=== PATIENT | male | born 1940 | race Caucasian/White ===

== ENCOUNTER 2016-06-18 04:04 | Emergency (ER) | payer OTHER ==
[~2016-06-18] VITALS: Ht 177.8 cm; Wt 72.6 kg
--- NOTE | 2016-06-18 05:46 | ED GI/GU/ABDOMINAL COMPLAINT ---
See Addendum History of Present Illness General Chief Complaint: General Adult Stated Complaint: BIBA FOR CONSTIPATION Source: patient, old records Exam Limitations: no limitations Vital Signs & Intake/Output Vital Signs & Intake/Output Vital Signs Date Time Temp Pulse Resp B/P Pulse O2 O2 Flow FiO2 Ox Delivery Rate 06/18 0422 97.5 97 18 145/69 96 Room Air Allergies Coded Allergies: NO KNOWN ALLERGIES (07/21/13) NKA PER ANTIBIOTIC ORDER SHEET OF 07/21/13 - [facility] Triage Note: PT BIBA FROM HOME C/O BACK PAIN RELATED TO CONSTIPATION. LAST BM WAS 5 DAYS AGO.STATES ISPASSING GAS, DENIES NAUSEA. STATES ATE A BIG MEAL AND THEN THE PAIN GOTR WORSE Triage Nurses Notes Reviewed? yes Onset: Last week Duration: day(s):, constant, continues in ED, getting worse Timing: recent history Quality/Severity: fullness, moderate Location: generalized abdomen Radiation: no radiation Activities at Onset: none Prior Abdominal Problems: none Past Sexual History: Unobtainable at this time Modifying Factors: Worsens With: eating. Associated Symptoms: abdominal pain, loss of appetite HPI: 1 week prior to admission patient complains of low back pain described as achy and worse with movement turning bending improved with ibuprofen. 5 days prior to admission he last moved his bowels. Presents with abdominal distention fullness requesting help for constipation. He denies fever chills nausea vomiting diarrhea chest pain cough shortness of breath headache dysuria rash bleeding change in motor sensory function. Past History Travel History Traveled to [place] past 21 day No Medical History Any Pertinent Medical History? see below for history EENT: [place] Renal: nephrolithiasis Endocrine: diabetes Surgical History Surgical History: non-contributory Psychosocial History What is your primary language Sierra Leonean Tobacco Use: Current Daily Use Daily Tobacco Use Amount/Type: => 5 Cigarettes daily ETOH Use: heavy use Illicit Drug Use: denies illicit drug use Family History Hx Contributory? No Review of Systems Review of Systems Constitutional: Reports: no symptoms. EENTM: Reports: no symptoms. Respiratory: Reports: no symptoms. Cardiovascular: Reports: no symptoms. GI: Reports: see HPI, abdominal pain, constipation. Genitourinary: Reports: no symptoms. Musculoskeletal: Reports: see HPI, back pain. Skin: Reports: no symptoms. Neurological/Psychological: Reports: no symptoms. Hematologic/Endocrine: Reports: no symptoms. Immunologic/Allergic: Reports: no symptoms. All Other Systems: Reviewed and Negative Physical Exam Physical Exam General Appearance: well developed/nourished, alert, awake, anxious, mild distress Head: atraumatic, normal appearance Eyes: Bilateral: normal appearance, PERRL, EOMI, normal inspection. Ears, Nose, Throat, Mouth: hearing grossly normal, moist mucous membrane Neck: normal inspection, supple, full range of motion, normal alignment Respiratory: normal breath sounds, chest non-tender, no respiratory distress, quiet respiration, lungs clear Cardiovascular: regular rate/rhythm, normal peripheral pulses, norml femoral pulses equa Peripheral Pulses: 4+ carotid (R), 4+ carotid (L) Gastrointestinal: normal bowel sounds, soft, non-tender, no organomegaly Rectal: normal rectal tone, unable to appreciate stool Male Genitals: normal genitalia Back: normal inspection, normal range of motion Extremities: normal range of motion, no ligament instability Neurologic/Psych: no motor/sensory deficits, awake, alert, oriented x 3, normal gait, normal mood/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 No Severe Sepsis Present: No Septic Shock Present: No Progress Differential Diagnosis: bowel obstruction, gastritis Plan of Care: Orders Procedure Date/time Status Enema 06/18 0504 Active Initial ED EKG: none Hand-Off Endorsed To: VIKTORIYA AGUILAR MD Endorsed Time: 0700 Pending: other (soap suds enema) Departure Departure Disposition: STILL A PATIENT Condition: Stable Clinical Impression Primary Impression: Constipation Referrals: MEHDI DUNNE MD (PCP/Family) Departure Forms: Customer Survey General Discharge Information
[2016-06-18] MEDS ORDERED: SERTRALINE HCL100 MG PO (07:31)
[2016-06-18 07:39] VITALS: BP 179/78
== END 2016-06-18 07:57 ==
LOC: ERH 04:04
DX: K59.00 Constipation, unspecified (principal)

== ENCOUNTER 2016-06-23 15:28 | Emergency (ER) | payer OTHER ==
[~2016-06-23 15:28] MED LIST: SERTRALINE HCL100 MG PO
--- NOTE | 2016-06-23 15:43 | ED NECK/BACK PAIN COMPLAINT ---
History of Present Illness General Chief Complaint: Low Back Pain/Injury Stated Complaint: BIBA, BACK PAIN, S/P FALL X 1WEEK AGO Source: patient Exam Limitations: no limitations Vital Signs & Intake/Output Vital Signs & Intake/Output Vital Signs Date Time Temp Pulse Resp B/P Pulse O2 O2 Flow FiO2 Ox Delivery Rate 06/23 1828 98.4 84 18 130/70 99 Room Air 06/23 1533 96.8 90 20 134/65 96 Room Air Allergies Coded Allergies: NO KNOWN ALLERGIES (07/21/13) NKA PER ANTIBIOTIC ORDER SHEET OF 07/21/13 - [facility] Reconcile Medications Insulin Aspart, Recombinant (Novolog Flexpen) 100 UNIT/ML INSULN.PEN DM ( Reported) Insulin Detemir (Levemir Flextouch) 100 UNIT/ML (3 ML) INSULN.PEN 22-24 UNITS SC BID PRN DM (Reported) Sertraline HCl 100 MG TABLET 1 TAB PO DAILY MENTAL HEALTH (Reported) Triage Note: BIBA FOM HOME, C/O PAIN IN LOW BACK X 1 WEEK. S/P FALL LAST WEEK. Triage Nurses Notes Reviewed? yes Onset: Gradual Duration: week(s): (1) Timing: recent history Quality/Severity: moderate Location: lumbar spine, paraspinous muscles Radiation: none Context: TRIPPED Method of Injury: fall Loss of Consciousness: no loss of consciousness Modifying Factors: immobilization HPI: Patient is a 75-year-old male with history of diabetes presenting to the emergency department chief complaining of low back pain has been going on for the past one week. Patient reports that he chipped overnight a month clothing on the floor about a week ago and landed directly on his bottom. Has had low back pain since. Pain is worse with walking and certain positions. Pain does not radiate. Pain currently moderate. He's been taking intermittent ibuprofen at home with some relief. Denies any urinary incontinence or retention. No saddle paresthesias. Denies any abdominal pain. Denies head injury. No loss of consciousness. Does not use any assistive devices. He lives alone. (YVES BAINS,JUSTICE) Past History Travel History Traveled to [place] past 21 day No Medical History Any Pertinent Medical History? see below for history EENT: [place] Renal: nephrolithiasis Endocrine: diabetes Surgical History Surgical History: non-contributory Psychosocial History What is your primary language Maori Family History Hx Contributory? No (JUSTICE VILLALOBOS) Review of Systems Review of Systems Constitutional: Reports: no symptoms. Comments Review of systems: See HPI, All other systems negative. Constitutional, no chills fever or weight loss HEENT: No visual changes no sore throat no congestion Cardiovascular: No chest pain ,palpitation , orthopnea or ankle swelling Skin, no jaundice no rashes Respiratory: No dyspnea cough sputum or hemoptysis GI: No nausea no vomiting : No dysuria No hematuria Muscle skeletal: no neck pain, Neurologic: No numbness no confusion NO SOLO Psych: No stress anxiety or depression,. Heme/endocrine: No bruising no bleeding no polyuria or polydipsia Immunology: No splenectomy or history of AIDS (JUSTICE VILLALOBOS) Physical Exam Physical Exam General Appearance: well developed/nourished, no apparent distress, alert, awake , comfortable Neck: normal inspection, supple, full range of motion, normal alignment Comments: Well-developed well-nourished person in no acute distress HEENT: Normal EENT exam, extraocular motion intact, no nystagmus. Pupils equally round and reactive to light and accommodation. Nose is atraumatic. External auditory canal and Tympanic membranes clear. Pharynx normal. No swelling or edema. Neck: Supple, no lymphadenopathy, normal range of motion without pain or tenderness, no C-spine tenderness. Back: Tenderness to palpation in the lumbar paraspinal region as well as L4, L5. No ecchymosis noted. Pain with forward flexion. Negative modified straight leg raise bilaterally. Cardiovascular: Regular rate and rhythms no murmurs rubs or gallops, normal JVP Respiratory: Chest nontender. No respiratory distress.breath sounds clear to auscultation bilaterally Abdomen: Soft, nontender nondistended, no appreciable organomegaly. Normal bowel sounds. No ascites Extremity: No edema, no calf tenderness to palpation, normal and equal pulses. Muscular strength is 5 out of 5 in all extremities with core inserter strength is equal and symmetric bilaterally. Neuro: Alert oriented x3, motor sensory normal, cranial nerves II through XII grossly intact. Reflexes are 2+ bilaterally. Skin: No appreciable rash on exposed skin, skin is warm and dry. Psych: Mood and affect is normal, memory and judgment is normal. (JUSTICE VILLALOBOS) Progress Differential Diagnosis: cauda equina syn, herniated disc, myofascial strain, pyelo/UTI, sciatica Plan of Care: Orders Procedure Date/time Status Consistent Carbohydrate 1 06/23 D Active URINE LYTES, SPOT 06/23 1619 Complete SERUM OSMOLALITY 06/23 161 Complete COMPREHENSIVE METABOLIC PANEL 06/23 1619 Complete CBC WITHOUT DIFFERENTIAL 06/23 1619 Complete ACETONE 06/23 1619 Complete FingerStick- Glucose 06/23 1540 Active URINALYSIS 06/23 1540 Complete Laboratory Tests 06/23/16 1726: Urine Color YEL, Urine Clarity CLEAR, Urine pH 6.0, Ur Specific [place] 1.025, Urine Protein NEG, Urine Ketones 40 H, Urine Nitrite NEG, Urine Bilirubin NEG, Urine Urobilinogen 0.2, Ur Leukocyte Esterase NEG, Ur Microscopic EXAM NOT REQUIRED, Urine Hemoglobin NEG, Urine Glucose >=1000 H 06/23/16 1726: Ur Random Creatinine 130.4, Ur Random Sodium 60, Ur Random Potassium 41.3, Fraction Sodium Excret 0.2 06/23/16 1637: Anion Gap 14, Estimated GFR > 60, BUN/Creatinine Ratio 28.6 H, Glucose 270 H, Serum Osmolality 312 H, Calcium 9.8, Total Bilirubin 0.5, AST 15 L, ALT 27, Alkaline Phosphatase 198 H, Total Protein 6.5, Albumin 3.8, Globulin 2.7, Albumin/Globulin Ratio 1.4, CBC w Diff NO MAN DIFF REQ, RBC 4.50 L, MCV 100.1 H, MCH 34.2 H, RDW 12.9, MPV 7.8, Gran % 60.2, Lymphocytes % 26.4, Monocytes % 11.3 H, Eosinophils % 1.4, Basophils % 0.7, Absolute Granulocytes 3.9, Absolute Lymphocytes 1.7, Absolute Monocytes 0.7 H, Absolute Eosinophils 0.1, Absolute Basophils 0, PUBS MCHC 34.1, Acetone Level NEGATIVE Diagnostic Imaging: Viewed by Me: CT Scan. Discussed w/RAD: CT Scan. Radiology Impression: ORDERING PHYSICIAN: JUSTICE BAINS SERVICE DATE: 06/23/16-154 EXAM TYPE: CAT - CT LUMB SPINE WO IV CONTRAST EXAMINATION: CT LUMBAR SPINE WITHOUT CONTRAST CLINICAL INFORMATION: Pain status post fall. COMPARISON: CT scan of the abdomen and pelvis 07/09/2013. The prior study demonstrated multilevel degenerative changes. TECHNIQUE: Helical non-contrast CT images were obtained through the lumbar spine and 1.25 and 2.5 mm axial reconstructions were reviewed along with sagittal and coronal MPRs. DLP: 383.56 mGy-cm FINDINGS: There is a mild dextroscoliosis. There is narrowing of intervertebral disc height at L5-S1. There is invagination of disc into the superior endplate of L3 to the left of midline. There are multilevel marginal osteophytes which are most prominent anteriorly and to the left at L1-L2, L2-L3 and L5-S1. Vertebral body heights are maintained and there are no compression fractures. Overall, bone mineralization is diffusely decreased. There are moderate atheromatous calcifications. There are sclerotic changes at the right greater than left inferior sacroiliac joints. The appendix is normal. The visualized pelvic structures are unremarkable. SPINAL LEVELS: T12-L1: The disc configuration is normal. The central canal and neural foramina are widely patent. The facet joints are normal. L1-L2: There is mild bilateral facet arthropathy. Disc contour is normal. There is no central stenosis or foraminal narrowing. L2-L3: There is mild to moderate facet arthropathy and ligamenta flava hypertrophy. There is a diffuse disc bulge. There is no central stenosis and the neural foramina are patent. L3-L4: There is mild bilateral facet arthropathy. There is a diffuse disc bulge. There is mild left foraminal narrowing. There is no central stenosis. L4-L5: There is moderate bilateral facet arthropathy and ligamenta flava hypertrophy. There is a posterior disc protrusion extending into the inferior neural foramina bilaterally. There is no central stenosis. L5-S1: There is mild bilateral facet arthropathy. There is a posterior disc osteophyte complex extending into the right greater than left neural foramina. There appear to be sequelae of a posterior decompression. There is no central stenosis. IMPRESSION: 1. There are no acute fractures or subluxations. 2. There is no central stenosis. 3. There is multilevel facet arthropathy and spondylosis. DICTATED BY: MAYUR IQBAL MD Comments: Patient informed of all laboratory results and imaging study results. Patient ambulatory in the department without difficulty. Patient requesting food. Tylenol for pain. Likely back contusion. Patient will follow up with PCP. Patient nontoxic. Corinna Yates MD agrees with plan patient will follow up PCP. (YVES BAINS,JUSTICE) Departure Departure Time of Disposition: 1811 Disposition: HOME OR SELF CARE Condition: Stable Clinical Impression Primary Impression: Back pain Qualifiers: Back pain location: low back pain Chronicity: unspecified Back pain laterality: bilateral Sciatica presence: without sciatica Qualified Code: M54.5 - Low back pain Secondary Impressions: Hyperglycemia Referrals: MEHDI DUNNE MD (PCP/Family) Additional Instructions: Follow-up with your primary care physician call to make an appointment. Increase fluids. Make sure you checking blood glucose levels. Take Tylenol [id number] for any aches or pains. Apply warm compresses. PATIENT: MICAH CESPEDES PRESENT AGE: 75 PATIENT ACCOUNT NO: [id number] : 39 LOCATION: [facility] ORDERING PHYSICIAN: JUSTICE BAINS SERVICE DATE: 06/23/161543 EXAM TYPE: CAT - CT LUMB SPINE WO IV CONTRAST EXAMINATION: CT LUMBAR SPINE WITHOUT CONTRAST CLINICAL INFORMATION: Pain status post fall. COMPARISON: CT scan of the abdomen and pelvis 07/09/2013. The prior study demonstrated multilevel degenerative changes. TECHNIQUE: Helical non-contrast CT images were obtained through the lumbar spine and 1.25 and 2.5 mm axial reconstructions were reviewed along with sagittal and coronal MPRs. DLP: 383.56 mGy-cm FINDINGS: There is a mild dextroscoliosis. There is narrowing of intervertebral disc height at L5-S1. There is invagination of disc into the superior endplate of L3 to the left of midline. There are multilevel marginal osteophytes which are most prominent anteriorly and to the left at L1-L2, L2-L3 and L5-S1. Vertebral body heights are maintained and there are no compression fractures. Overall, bone mineralization is diffusely decreased. There are moderate atheromatous calcifications. There are sclerotic changes at the right greater than left inferior sacroiliac joints. The appendix is normal. The visualized pelvic structures are unremarkable. SPINAL LEVELS: T12-L1: The disc configuration is normal. The central canal and neural foramina are widely patent. The facet joints are normal. L1-L2: There is mild bilateral facet arthropathy. Disc contour is normal. There is no central stenosis or foraminal narrowing. L2-L3: There is mild to moderate facet arthropathy and ligamenta flava hypertrophy. There is a diffuse disc bulge. There is no central stenosis and the neural foramina are patent. L3-L4: There is mild bilateral facet arthropathy. There is a diffuse disc bulge. There is mild left foraminal narrowing. There is no central stenosis. L4-L5: There is moderate bilateral facet arthropathy and ligamenta flava hypertrophy. There is a posterior disc protrusion extending into the inferior neural foramina bilaterally. There is no central stenosis. L5-S1: There is mild bilateral facet arthropathy. There is a posterior disc osteophyte complex extending into the right greater than left neural foramina. There appear to be sequelae of a posterior decompression. There is no central stenosis. IMPRESSION: 1. There are no acute fractures or subluxations. 2. There is no central stenosis. 3. There is multilevel facet arthropathy and spondylosis. DICTATED BY: MAYUR IQBAL MD DATE/TIME DICTATED:06/23/161707 MEDICAL APPOINTMENT SCHEDULER:DANIELLE DATE/TIME TRANSCRIBED:06/23/161707 CONFIDENTIAL, DO NOT COPY WITHOUT APPROPRIATE AUTHORIZATION. <Electronically signed in Other Vendor System> SIGNED BY: MAYUR IQBAL MD 06/23/161727 Departure Forms: Customer Survey General Discharge Information (JUSTICE VILLALOBOS) PA/SPECIAL EDUCATOR Co-Sign Statement Statement: ED Attending supervision documentation- [X] I saw and evaluated the patient. I have also reviewed all the pertinent lab results and diagnostic results. I agree with the findings and the plan of care as documented in the PA's/SPECIAL EDUCATOR's documentation. [X] I have reviewed the ED Record and agree with the PA's/SPECIAL EDUCATOR's documentation. [] Additions or exceptions (if any) to the PAs/SPECIAL EDUCATOR's note and plan are summarized below: [] (LAUREN JORDAN,CORINNA)
[2016-06-23] MEDS ORDERED: NOVOLOG FL100 UNIT/1 SC (16:10)
[2016-06-23] MEDS ORDERED: LEVEMIR FL100 UNIT/1 SC (16:11)
[2016-06-23 16:49] LABS: ABSOLUTE BASOPHIL COUNT 0 /CUMM (0.0-0.2); ABSOLUTE EOSINOPHIL COUNT 0.1 /CUMM (0.0-0.7); ABSOLUTE GRANULOCYTE CT 3.9 /CUMM (1.4-6.5); ABSOLUTE LYMPH COUNT 1.7 /CUMM (1.2-3.4); ABSOLUTE MONOCYTE COUNT 0.7 /CUMM (0.10-0.60); BASOPHIL % 0.7 % (0.0-2.0); EOSINOPHIL % 1.4 % (0-5); GRANULOCYTE % 60.2 % (42.2-75.2); MEAN CORPUSCULAR HGB 34.2 PG (27.0-31.0); MEAN CORPUSCULAR HGB CONC 34.1 G/DL (33.0-37.0); MEAN CORPUSCULAR VOLUME 100.1 FL (80.0-94.0); MEAN PLATELET VOLUME 7.8 FL (7.4-10.4); PLATELET COUNT 279 /CUMM (130-400); RBC DISTRIBUTION WIDTH 12.9 % (11.5-14.5); WHITE BLOOD CELL COUNT 6.4 /CUMM (4.8-10.8)
--- NOTE | 2016-06-23 17:28 | CT SCAN REPORT ---
EXAMINATION: CT LUMBAR SPINE WITHOUT CONTRAST CLINICAL INFORMATION: Pain status post fall. COMPARISON: CT scan of the abdomen and pelvis 07/09/2013. The prior study demonstrated multilevel degenerative changes. TECHNIQUE: Helical non-contrast CT images were obtained through the lumbar spine and 1.25 and 2.5 mm axial reconstructions were reviewed along with sagittal and coronal MPRs. DLP: 383.56 mGy-cm FINDINGS: There is a mild dextroscoliosis. There is narrowing of intervertebral disc height at L5-S1. There is invagination of disc into the superior endplate of L3 to the left of midline. There are multilevel marginal osteophytes which are most prominent anteriorly and to the left at L1-L2, L2-L3 and L5-S1. Vertebral body heights are maintained and there are no compression fractures. Overall, bone mineralization is diffusely decreased. There are moderate atheromatous calcifications. There are sclerotic changes at the right greater than left inferior sacroiliac joints. The appendix is normal. The visualized pelvic structures are unremarkable. SPINAL LEVELS: T12-L1: The disc configuration is normal. The central canal and neural foramina are widely patent. The facet joints are normal. L1-L2: There is mild bilateral facet arthropathy. Disc contour is normal. There is no central stenosis or foraminal narrowing. L2-L3: There is mild to moderate facet arthropathy and ligamenta flava hypertrophy. There is a diffuse disc bulge. There is no central stenosis and the neural foramina are patent. L3-L4: There is mild bilateral facet arthropathy. There is a diffuse disc bulge. There is mild left foraminal narrowing. There is no central stenosis. L4-L5: There is moderate bilateral facet arthropathy and ligamenta flava hypertrophy. There is a posterior disc protrusion extending into the inferior neural foramina bilaterally. There is no central stenosis. L5-S1: There is mild bilateral facet arthropathy. There is a posterior disc osteophyte complex extending into the right greater than left neural foramina. There appear to be sequelae of a posterior decompression. There is no central stenosis. IMPRESSION: 1. There are no acute fractures or subluxations. 2. There is no central stenosis. 3. There is multilevel facet arthropathy and spondylosis.
[2016-06-23 18:28] VITALS: BP 130/70
== END 2016-06-23 19:04 ==
LOC: ERH 15:28
PROVIDERS: Physician Assistant
DX: M54.5 Low back pain (principal); E11.65 Type 2 diabetes mellitus with hyperglycemia
CPT/HCPCS: 84133; 84300; 81003; 82570

== ENCOUNTER 2018-01-27 15:15 | Inpatient (IN) | payer OTHER ==
[~2018-01-27] VITALS: Ht 180.3 cm; Wt 73.6 kg
[~2018-01-27 15:15] MED LIST changes: +LEVEMIR FL100 UNIT/1 SC; +NOVOLOG FL100 UNIT/1 SC
--- NOTE | 2018-01-27 15:22 | ED NEURO DEFICIT/STROKE ---
History of Present Illness General Chief Complaint: Neuro Symptoms/ Deficit Stated Complaint: BIBA STROKE ALERT Source: patient, family Exam Limitations: poor historian Vital Signs & Intake/Output Vital Signs & Intake/Output Vital Signs Date Time Temp Pulse Resp B/P B/P Pulse O2 O2 Flow FiO2 Mean Ox Delivery Rate 01/27 1856 110 16 196/88 94 Room Air 01/27 1656 98.1 105 16 168/81 95 Room Air 01/27 1538 97.7 111 20 173/86 94 Room Air 01/27 1530 96 Room Air Allergies Coded Allergies: No Known Allergies (01/27/18) Reconcile Medications Insulin Aspart, Recombinant (Novolog Flexpen) 100 UNIT/ML INSULN.PEN DM ( Reported) Insulin Detemir (Levemir Flextouch) 100 UNIT/ML (3 ML) INSULN.PEN 22-24 UNITS SC BID PRN DM (Reported) Sertraline HCl 100 MG TABLET 1 TAB PO DAILY MENTAL HEALTH (Reported) Triage Nurses Notes Reviewed? yes HPI: Patient presents for evaluation of slurred speech. Patient states that he wasn' t sure why he was being sent to the emergency department. He does admit that his daughter spoke to him on the phone and felt that he was slurring his speech and she then contacted the paramedics. The patient does state that his speech seems to be a little "muddled". He states he fell down earlier today because he slipped on some fluid on the floor. He denies loss of consciousness and states that he didn't even fall to the floor. The patient states that he has poor recall of events. He wasn't sure when he awoke this morning. According to the patient's son, he saw his father (the patient) at about 11:30 this morning and noted that his speech seemed a little slurred. His father seem to be otherwise doing alright and commented that he needed some groceries or other necessities. His son went to the store and upon his return found his father on the floor. It was at that point that the family contacted 911 and had the patient brought to the emergency department for evaluation. Past History Medical History Any Pertinent Medical History? see below for history EENT: CHITINA Renal: nephrolithiasis Endocrine: diabetes Surgical History Surgical History: non-contributory Psychosocial History What is your primary language Kinyarwanda Family History Hx Contributory? No Review of Systems Review of Systems Constitutional: Reports: no symptoms. EENTM: Reports: no symptoms. Respiratory: Reports: no symptoms. Cardiovascular: Reports: no symptoms. GI: Reports: no symptoms. Genitourinary: Reports: no symptoms. Musculoskeletal: Reports: no symptoms. Skin: Reports: no symptoms. Neurological/Psychological: Reports: no symptoms. Hematologic/Endocrine: Reports: see HPI. Immunologic/Allergic: Reports: no symptoms. All Other Systems: Reviewed and Negative Physical Exam Physical Exam General Appearance: SEE BELOW Cranial Nerves: SEE BELOW Comments: Gen.: Well-nourished, well-developed, no acute respiratory distress. Head: Normocephalic, atraumatic. Eyes: Normal inspection bilaterally, EOMI, right pupil 2 mm, left pupil 3-4 mm and deformed likely secondary to prior surgery Ears: Normal inspection bilaterally Nose: Normal inspection Throat/mouth : Moist mucosa Neck: Supple, full range of motion, no goiter, no carotid bruits, equal carotid pulses Heart: Regular rate and rhythm, no murmurs rubs or gallops Lungs: Clear to auscultation bilaterally with normal air entry Chest: Nontender Back: Normal range of motion Abdomen: Nondistended, normal bowel sounds Extremities: Normal range of motion grossly, equal radial pulses, no cyanosis clubbing or edema, equal hand grasp, no pronator drift, no dysmetria Neurologic: Cranial nerves 2 through 12 intact, speech is mildly slurred, without apparent aphasia Skin: warm and dry Psychiatric: Calm, cooperative, no apparent delusions or hallucinations Core Measures CVA/TIA Diagnosis: No Sepsis Present: No Sepsis Focused Exam Completed? No Progress Differential Diagnosis: cva, DEHYDRATION, ELECTROLYTE ABNORMALITY, OCCULT INFECTION, ALCOHOL OR OTHER DRUG INTOXICATION/MEDICATION SIDE EFFECT Plan of Care: Orders Procedure Date/time Status Nothing by Mouth 01/28 B Active Misc Message 01/27 1923 Active ED Holding Orders 01/27 1923 Active Admit to inpatient 01/27 1923 Active Vital Signs 01/27 1923 Active Code Status 01/27 1923 Active Straight Cath 01/27 1844 Complete Add-on Test (ER Only) 01/27 1650 Active Add-on Test (ER Only) 01/27 1605 Active URINALYSIS 01/27 1557 Complete TSH REFLEX 01/27 1553 Complete ETHANOL 01/27 1553 Complete CREATINE PHOSPHOKINASE 01/27 1553 Complete Telemetry/Inspector Fuel Hose 01/27 152 Active PARTIAL THROMBOPLASTIN TIME 01/27 152 Complete PROTHROMBIN TIME 01/27 152 Complete COMPREHENSIVE METABOLIC PANEL 01/27 152 Complete CBC WITHOUT DIFFERENTIAL 01/27 152 Complete EKG 01/27 152 Active Current Medications Sig/Kamari Start time Last Medication Dose Stop Time Status Admin Sodium Chloride 1,000 ML ONCE ONE 01/27 1615 AC 01/27 (Normal Saline 0.9%) 01/27 1194 1616 Laboratory Tests 01/27/18 1841: Urinalysis LIGHT H, Urine Color YEL, Urine Clarity CLEAR, Urine pH 6.0, Ur Specific [place] 1.020, Urine Protein NEG, Urine Ketones >=80, Urine Nitrite NEG , Urine Bilirubin NEG, Urine Urobilinogen 0.2, Ur Leukocyte Esterase NEG, Ur Microscopic SEDIMENT EXAMINED, Urine RBC 1-3, Urine WBC RARE, Ur Epithelial Cells RARE, Hyaline Casts RARE H, Urine Mucus FEW, Urine Hemoglobin SMALL H, Urine Glucose >=1000 H 01/27/18 1553: Anion Gap 17 H, Estimated GFR > 60, BUN/Creatinine Ratio 28.8 H, Glucose 388 H, Calcium 9.8, Total Bilirubin 1.0, AST 35, ALT 25, Alkaline Phosphatase 110, Creatine Kinase 813 H, Total Protein 7.0, Albumin 4.2, Globulin 2.8, Albumin/ Globulin Ratio 1.5, TSH &T3 &Free T4 Intrp 1.260, PT 12.7 H, INR 1.16, APTT 29, CBC w Diff NO MAN DIFF REQ, RBC 4.92, MCV 99.8 H, MCH 33.6 H, MCHC 33.7, RDW 13.3, MPV 8.8, Gran % 86.3 H, Lymphocytes % 5.9 L, Monocytes % 7.8, Eosinophils % 0, Basophils % 0, Absolute Granulocytes 12.8 H, Absolute Lymphocytes 0.9 L, Absolute Monocytes 1.2 H, Absolute Eosinophils 0, Absolute Basophils 0, Serum Alcohol < 10.0 Initial ED EKG: NSR, no ST T wave changes Comments: 01/27/2018 3:20:26 PM as patient was transported directly to CT scan, I evaluated patient on the CAT scan table. Other than mildly slurred/dysarthric speech I see no other focal neurologic deficits. TPA will not be administered given the unclear time of onset of this patient's slurred speech. 01/27/2018 3:52:34 PM per radiologist, no acute changes on head and c spine ct. 01/27/2018 5:11:30 PM patient attempted to sit ice water from a straw with subsequent substantial coughing episode. I feel this patient is at very high risk of aspiration in the past that he avoid PO intake. 01/27/2018 7:00:01 PM patient's case discussed with Dr. Luna and Dr. Betts. Departure Departure Disposition: STILL A PATIENT Condition: Stable Clinical Impression Primary Impression: Dysphagia Qualifiers: Dysphagia type: unspecified Qualified Code: R13.10 - Dysphagia, unspecified Secondary Impressions: Hyperglycemia Referrals: Jonny Cool MD (PCP/Family) Departure Forms: Customer Survey General Discharge Information Admission Note Spoke With: Aba Max MD Documentation of Exam: Documentation of any treatments & extenuating circumstances including Concerns Regarding Discharge (functional status, medication knowledge or non-compliance, living conditions, etc.) that warrant an admission rather than observation: Presents after transient facial droop with a question of persistent slurred speech. During his emergency department stay he had great difficulty swallowing liquid, resulting in a pronounced coughing episode. In addition he is mildly hyperglycemic with a history of insulin-dependent diabetes. He is also a heavy cigarette smoker. Given the patient's possible prehospital facial droop along with his difficulty swallowing and multiple risk factors for cerebrovascular disease, I feel this patient requires hospitalization for investigation of the cause of his dysphasia (TIA/stroke, esophageal disease) and treatment of his hyperglycemia. I do not feel this patient is a good candidate for outpatient management given his difficulty in swallowing liquids as I feel he would be at high risk of dehydration and would potentially have difficulty in swallowing pills/complying with treatment. He would likely return in worse clinical condition. In addition to the above I feel the patient should have a neurology consultation, investigation of reversible causes of TIA/stroke such as cardioembolic disease and carotid artery disease. His hyperglycemia should be managed with IV fluids and insulin. If patient's hyperglycemia does not resolve an endocrinology consultation should be considered. Physical therapy should be considered as well to assess for patient's ability to swallow and for gait stability (the patient has fallen recently). Patient's difficulty swallowing should be evaluated with a swallowing study and/or formal dysphagia evaluation. GI consult should be considered due to the possibility of a mechanical obstructive process. I feel this patient will require a multiple day hospitalization. Critical Care Note Critical Care Note Critical Care Time: 30-74 min
--- NOTE | 2018-01-27 15:54 | CT SCAN REPORT ---
EXAMINATION: CT HEAD WITHOUT CONTRAST CT CERVICAL SPINE WITHOUT CONTRAST CLINICAL INFORMATION: Fall. Slurred speech. COMPARISON: None. TECHNIQUE: Contiguous axial imaging was performed from the skullbase to vertex without intravenous administration of contrast. Multidetector helical imaging was performed through the cervical spine. DLP: 635.3, 312 mGy-cm. FINDINGS: HEAD: There is no evidence of acute intracranial hemorrhage or territorial infarction. No abnormal mass effect or midline shift is seen. Danielson to white matter differentiation is well preserved. No extra-axial fluid collections are identified. Generalized parenchymal volume loss noted. There is no evidence of hydrocephalus. Mild chronic white matter microangiopathic changes present. The osseous structures and soft tissues are normal. The mastoid air cells and visualized portions of the paranasal sinuses are well aerated. CERVICAL SPINE: No acute fracture or dislocation is identified in the cervical spine. Multilevel bridging endplate osteophytes are present, particularly from the C4-C7 levels with mild disc space narrowing. There is exuberant right-sided facet arthropathy at C3-C4. Ankylosis of the C2-C3 facet joint. Facet arthropathy and disc-osteophyte complexes contributing to varying degrees of foraminal narrowing, most severe on the right side at C3-C4. The atlantoaxial articulation is normally maintained. The paraspinal soft tissues are normal. Incidental ossification of the stylohyoid ligaments bilaterally. The lung apices are clear with mild emphysematous changes. IMPRESSION: 1. No acute intracranial hemorrhage or territorial infarction. Mild chronic white matter microangiopathy. The possibility of a focal acute ischemic process cannot be ruled out on the basis of this study. 2. No evidence of acute cervical spine traumatic injury. Multilevel cervical spondylosis.
[2018-01-27 16:00] LABS: ABSOLUTE BASOPHIL COUNT 0 /CUMM (0.0-0.2); ABSOLUTE EOSINOPHIL COUNT 0 /CUMM (0.0-0.7); ABSOLUTE GRANULOCYTE CT 12.8 /CUMM (1.4-6.5); ABSOLUTE LYMPH COUNT 0.9 /CUMM (1.2-3.4); ABSOLUTE MONOCYTE COUNT 1.2 /CUMM (0.10-0.60); BASOPHIL % 0 % (0.0-2.0); EOSINOPHIL % 0 % (0-5); HEMATOCRIT 49.1 % (42-52); MEAN CORPUSCULAR HGB 33.6 PG (27.0-31.0); MEAN CORPUSCULAR HGB CONC 33.7 G/DL (33.0-37.0); MEAN CORPUSCULAR VOLUME 99.8 FL (80.0-94.0); MEAN PLATELET VOLUME 8.8 FL (7.4-10.4); PLATELET COUNT 243 /CUMM (130-400); RBC DISTRIBUTION WIDTH 13.3 % (11.5-14.5); RED BLOOD CELL CT 4.92 /CUMM (4.70-6.10); WHITE BLOOD CELL COUNT 14.8 /CUMM (4.8-10.8)
[2018-01-27 16:08] LABS: PT 12.7 SEC (9.4-12.5); PTT 29 SEC (25-37)
[2018-01-27 16:15] LABS: GRANULOCYTE % 86.3 % (42.2-75.2)
--- NOTE | 2018-01-27 17:19 | RADIOLOGY REPORT ---
EXAMINATION: XR PORTABLE CHEST CLINICAL INFORMATION: Status post fall. Alcohol intoxication. Weakness. COMPARISON: None TECHNIQUE: Portable frontal view of the chest was obtained. FINDINGS: No focal consolidation, pleural effusion or pneumothorax. Heart size is normal. No acute osseous abnormality. IMPRESSION: No acute pulmonary process.
--- NOTE | 2018-01-27 20:18 | History & Physical ---
Tristan Rosado 01/27/18 2017: General Information and HPI MD Statement: I have seen and personally examined MICAH CESPEDES and documented this H&P. The patient is a 77 year old M who presented with a patient stated chief complaint of [slurred speech and falling down]. Source of Information: patient Exam Limitations: poor historian History of Present Illness: The patient is a 77-year-old man with a past medical history significant for diabetes mellitus on insulin, nephrolithiasis, who was brought in by ambulance due to status speech that was noticed by family members. The history which is provided by the patient is not consistent. He is states that he thought he had a stroke but he believes it is not the case. He says that his son thought he should come to the hospital and this is the reason that he is here. He believes that he severe back pain and for this reason he might be having a stroke. His back pain was worse and seems to 3 days ago and he mentions that he has tenderness it is hard for him to get off the floor. Last June he had one admission to ED because of low back pain. He does not take any pain medication he mentions that movement worsens it. He was diagnosed with diabetes 23 years ago, first oral hypoglycemic agents were started for him and then almost 10 years ago insulin was started for him. His PCP is Dr. Cool, last visit with his PCP was last week, he states that the reason for this visit was possible stroke, because he has severe low back pain and diabetes and not being able to get off the floor. Yesterday he fell on the floor, he believes that his foot gave out on the floor, and water was spilled over on the floor in the kitchen and he just felt a slightly. He fell 2 times consequently yesterday. He denies any dizziness or confusion before after a fall. He was able to get up by himself after a fall. He states that he fell on his back later he says that he fell straight down, but he has bruises on his forehead. He confirms that he is head during this fall. The second fall happened in the same spot as the first fall exactly the same situation. He also admits that he had falls last week when he lost his balance and fell. He mentioned that this is okay to call his son, Km, and he also provided his phone number. He denies any hyperlipidemia thyroid issues, dysuria, frequency, constipation, chills, sweating, chest pain, headache, lightheadedness, dizziness , or nausea, vomiting, or weight loss. During the interview he has a productive wet cough which she mentions that has started from 3 weeks ago, today he had some phlegm which is clear not thick and nonbloody. He uses hearing aids bilaterally, he denies any history of heart, liver, prostate, or lung disease. He lives alone and takes care of his household by himself. He denies any difficulty swallowing or eating. He also had bladder and bowel incontinence. Allergies: No allergies to any known medications or foods Past medical history: Diabetes mellitus, nephrolithiasis, hearing impairment bilaterally Past surgical history: Low back surgery due to disc injury many years ago, he does not recall the dates Family history: He mentions that his father had diabetes mellitus, he committed suicide because he was afraid that he would have a stroke and would be incapacitated. Social history: He has been smoking 4-5 cigarettes per day for the past 60 years, he is states that he likes smoking and drinking and he is not going to quit. He drinks 1 bottle of "cheap vodka" every week for the past 18 years when his and he is started dating. He denies any use of recreational drugs. 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 Allergies/Medications Allergies: Coded Allergies: No Known Allergies (01/27/18) Home Med list Insulin Aspart, Recombinant (Novolog Flexpen) 100 UNIT/ML INSULN.PEN DM ( Reported) Insulin Detemir (Levemir Flextouch) 100 UNIT/ML (3 ML) INSULN.PEN 22-24 UNITS SC BID PRN DM (Reported) Sertraline HCl 100 MG TABLET 1 TAB PO DAILY MENTAL HEALTH (Reported) Compliance With Home Meds: UNKNOWN Past History Travel History Traveled to [place] past 21 day No Medical History Neurological: NONE [place]: [place] Cardiovascular: NONE Respiratory: NONE Gastrointestinal: NONE Hepatic: NONE Renal: nephrolithiasis Musculoskeletal: NONE Psychiatric: NONE Endocrine: diabetes Surgical History Surgical History: non-contributory Review of Systems Review of Systems Constitutional: Reports: see HPI. Exam & Diagnostic Data Last 24 Hrs of Vital Signs/I&O Vital Signs Date Time Temp Pulse Resp B/P B/P Pulse O2 O2 Flow FiO2 Mean Ox Delivery Rate 01/28 0200 98 16 01/28 0000 98.5 118 20 160/88 01/28 0000 96 Room Air 01/27 2255 98.0 112 18 167/78 01/27 2229 98.0 112 18 167/78 01/27 2218 94 Room Air 01/27 2210 98.5 118 20 160/88 96 Room Air 01/27 2028 98.0 118 20 167/79 95 Room Air 01/27 1856 110 16 196/88 94 Room Air 01/27 1656 98.1 105 16 168/81 95 Room Air 01/27 1538 97.7 111 20 173/86 94 Room Air 01/27 1530 96 Room Air Intake & Output 01/28 0800 01/28 0000 01/27 1600 Intake Total 1050 Output Total 300 Balance 750 Intake, IV 1000 Intake, Oral 50 Number 1 Bowel Movements Output, Urine 300 Patient 160 lb 140 lb Weight Weight Bed scale Reported by Patient Measurement Method Physical Exam General Appearance Alert, Oriented X3, Cooperative, No Acute Distress Skin No Rashes, Several different stage briuses on his boddy, knees, back Skin Temp/Moisture Exam: Warm/Dry Sepsis Skin Exam (color): Normal for Ethnicity HEENT Atraumatic, EOMI, Dry Mucosa Neck Supple Cardiovascular Regular Rate, Normal S1, Normal S2 Lungs diffuse ronchi Abdomen Normal Bowel Sounds, Soft, No Tenderness, No Hepatospenomegaly Neurological Cranial Nerves 3-12 NL, Reflexes 2+, Not able to stand, so not able to check gait or balance, decreased sensation on sole of feet, decreased MP on right side 4/5, Extremities Bruises on both knees, different stages of healing, probably due to multiple falls, Weak LE Pulses, PVD, Varicose veins in LE, -ve SLR, Vascular Weak LE pulses Assessment/Plan Assessment: The patient is a 77-year-old male who is active smoker, with past medical history significant for diabetes mellitus on insulin, and nephrolithiasis who has presented to ED due to slurred speech which was noticed by his family members. Since he is diabetic and he uses insulin, first blood sugar should be checked to rule out hypoglycemia which was done for him and blood sugar was 388. Rule out TIA/CVA: The patient is male, 77-year-old, past medical history of diabetes mellitus, active smoker, peripheral vascular disease symptoms, high risk for cerebral accidents. He also had bladder and bowel incontinence which could be as a result of neurologic deficit. Plan: Head CT scan without contrast, repeat imaging later, neurology's consult Alcohol abuse: The patient has a history of 1 L of alcohol per week which is extensive. But the urine alcohol level was negative, he had tremor in his hands , the history was not consistent and there is possibility of confabulation in favor of Wernicke-Korsakoff syndrome. Plan: Place the patient on CIWA score and give Ativan based on protocol, thiamine, banana bag, neurochecks Rhabdomyolysis: The patient had a fall and it is unknown exactly how long he was on the floor, he has a positive CPK with hyperkalemia of 5.3 and small hemoglobin was seen in his UA. Creatinine is 0.8 but we should be careful about ATN in the next 24 hours due to rhabdomyolysis although CPK is not significantly high. Plan: Recheck potassium level, and creatinine level. Hypertension: The patient had a high blood pressure on presentation with the highest systolic blood pressure in 190s, Plan: Blood pressure of this patient will be monitored and managed as needed Diabetes mellitus: The patient has a long-standing history of diabetes mellitus and he is on insulin Plan: We will control blood sugar using sliding scale insulin As Ranked By This Provider Problem List: 1. CVA (cerebral vascular accident) 2. Hyperglycemia 3. Back pain 4. Falls frequently Core Measures/Misc (01/28) Acute Coronary Syndrome ACS Diagnosis: No Congestive Heart Failure Congestive Heart Failure Diagnosis No Cerebrovascular Accident CVA/TIA Diagnosis: Yes VTE (View Protocol) VTE Risk Factors Age>40 No Mechanical VTE Prophylaxis d/t N/A MechProphylax Ordered No VTE Pharm Prophylaxis d/t NA PharmProphylax ordered Sepsis (View protocol) Sepsis Present: No If YES complete Sepsis Event Note If YES complete Sepsis Event Note Estrella Liu MD 01/27/182024: Core Measures/Misc (01/28) Sepsis (View protocol) If YES complete Sepsis Event Note If YES complete Sepsis Event Note Resident Review Statement Resident Statement: examined this patient, discussed with recruiting internship, agreed with recruiting internship, discussed with family Other Findings: Patient is a 77-year-old male BIBA for slurring of speech weakness and possible stroke as per son/ED documents. Patient had a witnessed fall at home around 11: 00 and he refused to transfer to the hospital. Patient was found on the floor around 12:30 as per family. He was saying that I am just resting. Son reports that his speech is slurred. He was having incontinence of the urine but there was no facial droop. At the time of presentation in the ED he was oriented to time place and person without any weakness in upper extremity or lower extremity. At the time of presentation his NIH score is around 1.His blood sugar was 339. Most of the history is taken from the patient. He was oriented to time place and person. 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 He said that he has recurrent falls since last couple of weeks. At her baseline he has a history of diabetes, he is currently on insulin and following MD Raven Gregory. A week ago he started having pain in his back and he thought that he is having stroke so he went to Jonny Cool MD. He was told to follow-up with him next 1-2 weeks. According to him he fell yesterday morning around 11:00 because of the water on the floor. He got up by himself initially and again fell. Recently he started having difficulty in getting up after sitting especially in the bathroom and bed. He denies; headache, blurry vision, confusion, nausea, vomiting, fever, incontinence of the stool in the urine. Of note patient was found incontinent for stool in the urine in the ED. Past medical history- Type 2 diabetes; Diagnosed at the age of 54. History of multiple mechanical falls. Nephrolithiasis Vital signs at the time of admission-temperature 97.7, pulse 111, respiratory 20 , blood pressure 173/86, SPO2 94% on room air. On examination-mucous membrane was dry. He has bruises and ambulation in different stages of healing to bilateral upper and lower extremities including left upper back, flank and crownof the head. On physical examination-patient was conscious cooperative oriented to time place and person, pupils round and reactive, no cranial nerve deficit, neck is stiff, no JVD, heart S1-S2 normal, lungs bilateral wheezing, abdomen soft, muscle power -4/5 left upper and lower limb, 5/5 right upper limb and lower limb. Multiple bruises throughout the body including both elbows, both knees, left side of the chest. Blood workup-WBC 14.8, hemoglobin 16.5, hematocrit 49.1, MCV 99.8, platelet count 243, there is an 86.3, lymphocytes 5.9, serum sodium 135, potassium 5.3, chloride 95, anion gap 17, BUN 23, creatinine 0.8, glucose 388, creatinine kinase 8.3, AST 35, ALT 25, alkaline phosphatase 110, albumin 4.2, TSH 1.260, PT /INR 12.7/1.16, urine analysis ketones more than 80, pH 6.0, hyaline casts rare, hemoglobin small, urine glucose more than thousand, U tox serum alcohol less than 10. Problem list * Repeated fall leading to multiple bruises; rule out the cause possible peripheral neuropathy, brain stem lesion, parkinsonism * Proximal muscle weakness; myopathy should be ruled out or maybe diabetes induced myopathy * Asymptomatic tachycardia ? 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 until swallow evaluation (Patient had coughing and choking episode after he sipped ice water) * Get the records from Dr Cool, office. * Inj metoprolol 2.5 mg every 8 * Place Neurolgy consult * Follow MRI brain and MRA of the neck * CIWA score * Ativan according to CIWA protocol * Nicotin patch * Follow vitamin B12, folic acid, iron panel * PT/OT * TRC/nebulization * CODE STATUS-DNR/DNI * Diet-n.p.o. till passes swallow evaluation * DVT prophylaxis-ALPS/heparin
[2018-01-27 22:10] VITALS: BP 160/88
[2018-01-27 22:29] VITALS: BP 167/78
[2018-01-28] VITALS: BP 160/88
[2018-01-28 06:00] VITALS: BP 150/100
[2018-01-28 07:09] VITALS: BP 146/74
[2018-01-28 08:31] LABS: ABSOLUTE BASOPHIL COUNT 0 /CUMM (0.0-0.2); ABSOLUTE EOSINOPHIL COUNT 0 /CUMM (0.0-0.7); ABSOLUTE GRANULOCYTE CT 9.3 /CUMM (1.4-6.5); ABSOLUTE LYMPH COUNT 1.1 /CUMM (1.2-3.4); ABSOLUTE MONOCYTE COUNT 0.9 /CUMM (0.10-0.60); BASOPHIL % 0 % (0.0-2.0); EOSINOPHIL % 0 % (0-5); GRANULOCYTE % 82.3 % (42.2-75.2); HEMATOCRIT 45.2 % (42-52); MEAN CORPUSCULAR HGB CONC 34.1 G/DL (33.0-37.0); MEAN CORPUSCULAR VOLUME 99.7 FL (80.0-94.0); MEAN PLATELET VOLUME 9.1 FL (7.4-10.4); PLATELET COUNT 216 /CUMM (130-400); RBC DISTRIBUTION WIDTH 13.1 % (11.5-14.5); RED BLOOD CELL CT 4.53 /CUMM (4.70-6.10); WHITE BLOOD CELL COUNT 11.3 /CUMM (4.8-10.8)
--- NOTE | 2018-01-28 08:49 | PN- Housestaff ---
Leonardo JORDAN,Ivelisse 01/28/18 0849: Subjective Follow-up For: Rule out stroke Multiple falls Complaints: no complaints Tele-Events Since Last Visit: Normal sinus rhythm Subjective: Patient seen and examined at bedside. He is in no acute distress. He is eager to have his breakfast today. He says he slept well overnight. He denies any weakness/numbness/dizziness/fall. Review of Systems Constitutional: Reports: no symptoms. Cardiovascular: Reports: no symptoms. Respiratory: Reports: no symptoms. Gastrointestinal: Reports: no symptoms. Genitourinary: Reports: no symptoms. Objective Last 24 Hrs of Vital Signs/I&O Vital Signs Date Time Temp Pulse Resp B/P B/P Pulse O2 O2 Flow FiO2 Mean Ox Delivery Rate 01/28 1026 Room Air 01/28 0709 97.6 95 12 146/74 93 Room Air 01/28 0645 76 20 150/100 01/28 0600 97.6 150/100 01/28 0400 100 16 01/28 0200 98 16 01/28 0000 98.5 118 20 160/88 01/28 0000 96 Room Air 01/27 2255 98.0 112 18 167/78 01/27 2229 98.0 112 18 167/78 01/27 2218 94 Room Air 01/27 2210 98.5 118 20 160/88 96 Room Air 01/27 2028 98.0 118 20 167/79 95 Room Air 01/27 1856 110 16 196/88 94 Room Air 01/27 1656 98.1 105 16 168/81 95 Room Air 01/27 1538 97.7 111 20 173/86 94 Room Air 01/27 1530 96 Room Air Intake & Output 01/28 1600 01/28 0800 01/28 0000 Intake Total 534 1050 Output Total 300 Balance 534 750 Intake, IV 534 1000 Intake, Oral 50 Number 1 Bowel Movements Output, Urine 300 Patient 160 lb Weight Weight Bed scale Measurement Method Physical Exam General Appearance: Alert, Oriented X3, Cooperative, No Acute Distress Cardiovascular: Regular Rate, Normal S1, Normal S2, No Murmurs Lungs: Clear to Auscultation Abdomen: Soft, No Tenderness, No Hepatospenomegaly Neurological: Normal Speech, Strength at 5/5 X4 Ext, Normal Tone, Sensation Intact Current Medications: Current Medications Sig/Kamari Start time Last Medication Dose Route Stop Time Status Admin Albuterol Sulfate 2 PUF Q4P PRN 01/28 1045 AC INH Aspirin Buffered 81 MG DAILY 01/27 2025 01/28 PO 1051 Cyanocobalamin/ 1 BAG DAILY@0 01/27 2200 [place] 01/27 Thiamine/Pyridoxine IV 2257 Dextrose/Water 1,000 ML Heparin Sodium 5,000 UNIT Q8 01/27 2200 01/28 (Porcine) SC 0649 Influenza Virus 0.5 ML ONCE ONE 01/28 09 DC Vaccine IM 01/28 09 Insulin Aspart 0 AT BEDTIME 01/28 2100 SC Insulin Aspart 0 TIDAC 01/28 1200 AC 01/28 SC 1053 Insulin Detemir 20 UNITS BID 01/28 0911 01/28 SC 1052 Insulin Human Regular 10 UNITS ONCE ONE 01/27 1700 DC 01/27 ME 01/27 1701 1719 Lorazepam 0 Q1P PRN 01/27 2045 AC IV Metoprolol Tartrate 12.5 MG BID 01/28 2100 AC PO Metoprolol Tartrate 2.5 MG Q8 01/27 2200 [place] 01/28 IV 0645 Nicotine 21 MG DAILY 01/28 0900 01/28 TOP 1052 Omeprazole 40 MG DAILY 01/28 09 01/28 PO 1051 Pantoprazole Sodium 40 MG BID 01/27 2100 [place] 01/27 IV 2250 Sodium Chloride 1,000 ML ONCE ONE 01/27 1615 DC 01/27 IV 01/27 2254 1616 Thiamine HCl 100 MG DAILY 01/29 0900 CAN Sodium Chloride 50 ML IV Thiamine HCl 50 MG DAILY 01/28 09 01/28 PO 1052 Thiamine HCl 100 MG ONCE ONE 01/27 2300 [place] 01/28 Sodium Chloride 50 ML IV 01/27 2359 0028 Last 24 Hrs of Lab/Elder Results Last 24 Hrs of Labs/Mics: Laboratory Tests 01/28/18 0700: Anion Gap 14, Estimated GFR > 60, Glucose 312 H, Calcium 9.0, Phosphorus 3.2, Magnesium 1.7, Total Bilirubin 0.7, AST 24, ALT 26, Creatine Kinase 401 H, Albumin 3.2 L, Triglycerides 76, Cholesterol 127, LDL Cholesterol, Calc 60 L, HDL Cholesterol 52, Cholesterol/HDL Ratio 2, Vitamin B12 942 H, Folate > 20.0 H, CBC w Diff NO MAN DIFF REQ, RBC 4.53 L, MCV 99.7 H, MCH 34.0 H, MCHC 34.1, RDW 13.1, MPV 9.1, Gran % 82.3 H, Lymphocytes % 10.0 L, Monocytes % 7.7, Eosinophils % 0, Basophils % 0, Absolute Granulocytes 9.3 H, Absolute Lymphocytes 1.1 L, Absolute Monocytes 0.9 H, Absolute Eosinophils 0, Absolute Basophils 0 01/27/18 1841: Urine Opiates Screen < 100, Methadone Screen < 40, Barbiturate Screen < 60, Ur Phencyclidine Scrn < 6.00, Amphetamines Screen < 100, U Benzodiazepines Scrn < 85, Urine Cocaine Screen < 50, Urine Cannabis Screen < 5.00, Urinalysis LIGHT H , Urine Color YEL, Urine Clarity CLEAR, Urine pH 6.0, Ur Specific [place] 1.020, Urine Protein NEG, Urine Ketones >=80, Urine Nitrite NEG, Urine Bilirubin NEG, Urine Urobilinogen 0.2, Ur Leukocyte Esterase NEG, Ur Microscopic SEDIMENT EXAMINED, Urine RBC 1-3, Urine WBC RARE, Ur Epithelial Cells RARE, Hyaline Casts RARE H, Urine Mucus FEW, Urine Hemoglobin SMALL H, Urine Glucose >=1000 H 01/27/18 1553: Anion Gap 17 H, Estimated GFR > 60, BUN/Creatinine Ratio 28.8 H, Glucose 388 H, Hemoglobin A1c 9.1 H, Calcium 9.8, Phosphorus 4.1, Magnesium 1.7, Total Bilirubin 1.0, AST 35, ALT 25, Alkaline Phosphatase 110, Creatine Kinase 813 H, Total Protein 7.0, Albumin 4.2, Globulin 2.8, Albumin/Globulin Ratio 1.5, TSH & T3 &Free T4 Intrp 1.260, PT 12.7 H, INR 1.16, APTT 29, CBC w Diff NO MAN DIFF REQ, RBC 4.92, MCV 99.8 H, MCH 33.6 H, MCHC 33.7, RDW 13.3, MPV 8.8, Gran % 86.3 H, Lymphocytes % 5.9 L, Monocytes % 7.8, Eosinophils % 0, Basophils % 0, Absolute Granulocytes 12.8 H, Absolute Lymphocytes 0.9 L, Absolute Monocytes 1.2 H, Absolute Eosinophils 0, Absolute Basophils 0, Hepatitis A IgM Ab NONREACTIVE, Hep Bs Antigen NONREACTIVE, Hep B Core IgM Ab Conf NONREACTIVE, Hepatitis C Antibody NONREACTIVE, Serum Alcohol < 10.0 Assessment/Plan Assessment: 77-year-old male who is active smoker, with past medical history significant for diabetes mellitus on insulin, and nephrolithiasis who has presented to ED due to slurred speech and fall. Vital signs Temperature 97.6, pulse rate 76, respiratory 20, blood pressure 150/100, saturation is 93 at room air. Assessment and plan 1. Leukocytosis 2. Rule out stroke 3. Multiple fall assist gait mobility 4. Chronic alcohol use 5. Chronic smoking-active smoker * Continue telemetry monitoring * Vitals every shift * Patient is planned for MRI head and neck. Neurology follow-up appreciated * Patient can work with physical therapy and occupational therapy. Advise cane/ walker given his multiple falls. * Patient counseled to quit smoking and alcohol. * Will give nicotine patches * Patient is already on CIWA protocol. * Leukocytosis-unclear at this point. Denies dysuria/fever/cough. We will send urine culture to rule out any asymptomatic bacteriuria. Code-DNR/DNI Diet-consistent carbohydrate diet DVT prophylaxis-heparin Update Patient MRI showed acute infarct involving the right paramedian medulla, small acute lacunar infarct within the right parasagittal frontal lobe. This was discussed with the neurologist Dr. Betts who suggested to do echocardiogram. 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 Patient diet has been modified to chopped and honey. Patient will get modified barium swallow tomorrow. Problem List: 1. Falls frequently 2. CVA (cerebral vascular accident) Pain Ratin Pain Location: none Pain Goal: Remain pain free Pain Plan: tylenol Tomorrow's Labs & Rationales: cbc,bep Narciso Tubbs MD 01/28/18 1256: Attending MD Review Statement Attending Statement Attending MD Statement: examined this patient, discuss w/resident/PA/PULP BLEACHER, agreed w/resident/PA/PULP BLEACHER, reviewed EMR data (avail) Attending Assessment/Plan: 77M PMH IDDM admitted overnight with recurrent falls, thought to have slurred speech by family, concerning for CVA. Patient feels well at this time and has no complaints. He does not have slurred speech. Cranial nerves intact, no facial droop or asymmetry, normal strength and sensation. Walked well with PT. 1. Fall, initial 2. Slurred speech Plan - Continue on telemetry - MRI head - ASA and statin - Neurology consult - Speech therapy eval - PT/OT - Continue home medications - DVT PPx
--- NOTE | 2018-01-28 13:37 | MRI REPORT ---
EXAMINATION: MR BRAIN WITHOUT CONTRAST MRA NECK WITH AND WITHOUT CONTRAST CLINICAL INFORMATION: Question TIA/stroke. COMPARISON: Head CT 01/27/2018. TECHNIQUE: MRI of the brain without contrast was obtained using routine sequences. In addition, [id number] MR angiography was performed through the neck without the use of intravenous contrast, and source images were reviewed along with rotating MIPs. Finally, bolus IV and postcontrast MR angiography was performed through the cervicocerebral vasculature following the administration of 8 mL of Gadavist. Source images were reviewed and additional volumetric and angled MIPs were independently generated and archived by the [facility]. Stenoses are assessed in accordance with NASCET criteria unless otherwise indicated. FINDINGS: BRAIN MRI: There is an acute infarct within the right paramedian medulla on image 50 of series 3 and there is a small acute lacunar infarct within the right parasagittal frontal lobe on image 63 and 64 of series 3. 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 There is global cerebral volume loss. There is no hydrocephalus, extra-axial surface collection, or herniation. The major flow voids at the skull base are preserved. There is no intracranial hemorrhage on the gradient recalled echo acquisition. The midline structures are normal. The cerebellar tonsils are normally positioned. The craniocervical junction is normal. Osseous marrow signal intensity is homogenous. The visualized soft tissues are unremarkable. Small mastoid effusions bilaterally. NECK MRA: There is a 3 great vessel branch configuration off of the aortic arch and the great vessel origins are widely patent. The vertebral arteries are codominant and there is a moderate stenosis involving the mid right vertebral artery. Vertebral arteries are otherwise widely patent. Imaged vertebrobasilar system is widely patent. The common carotid arteries, the carotid bifurcations, and the cervical internal carotid arteries are widely patent. IMPRESSION: - There is an acute infarct within the right paramedian medulla on image 50 of series 3 and there is a small acute lacunar infarct within the right parasagittal frontal lobe on image 63 and 64 of series 3. - Global cerebral volume loss and mild chronic microangiopathy. 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 The cervical arterial vasculature is otherwise widely patent. The covering provider has been paged with these findings at 1:30 PM on 01/28/2018.
[2018-01-28 14:51] VITALS: BP 152/70
--- NOTE | 2018-01-28 15:04 | Cons- Neurology ---
General Information and HPI Consulting Request Date of Consult: 01/28/18 Requested By: Narciso Tubbs MD Reason for Consult: Focal neurological complaints Source of Information: patient, family, old records Exam Limitations: poor historian History of Present Illness: Pleasant 77-year-old man who is right handed who was brought to the hospital by family members after falling multiple times over the last few days and developing some slurred speech. In the emergency room he was already out of window as the symptoms have been fluctuating for 24 hours. He was admitted with suspicion for a stroke. He admits that he has been struggling to swallow over the last few hours and has been coughing up. 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 Our also punctate diffusion positive lesions within the anterior circulation. He offers no other complaints. He has diabetes and other cardiovascular risk factors at baseline but has never had a stroke. Allergies/Medications Allergies: Coded Allergies: No Known Allergies (01/27/18) Home Med List: Insulin Aspart, Recombinant (Novolog Flexpen) 100 UNIT/ML INSULN.PEN DM ( Reported) Insulin Detemir (Levemir Flextouch) 100 UNIT/ML (3 ML) INSULN.PEN 22-24 UNITS SC BID PRN DM (Reported) Sertraline HCl 100 MG TABLET 1 TAB PO DAILY MENTAL HEALTH (Reported) Current Medications: Current Medications Sig/Kamari Start time Last Medication Dose Route Stop Time Status Admin Albuterol Sulfate 2 PUF Q4P PRN 01/28 1045 AC INH Aspirin Buffered 81 MG DAILY 01/27 2025 AC 01/28 PO 1051 Atorvastatin Calcium 40 MG 1700 01/28 1700 AC PO Cyanocobalamin/ 1 BAG DAILY@0 01/27 2200 DC 01/27 Thiamine/Pyridoxine IV 2257 Dextrose/Water 1,000 ML Heparin Sodium 5,000 UNIT Q8 01/27 2200 AC 01/28 (Porcine) SC 0649 Influenza Virus 0.5 ML ONCE ONE 01/28 0900 DC Vaccine IM 01/28 0901 Insulin Aspart 0 AT BEDTIME 01/28 2100 AC SC Insulin Aspart 0 TIDAC 01/28 1200 AC 01/28 SC 1053 Insulin Detemir 20 UNITS BID 01/28 0911 AC 01/28 SC 1052 Insulin Human Regular 10 UNITS ONCE ONE 01/27 1700 DC 01/27 SC 01/27 1701 1719 Lorazepam 0 Q1P PRN 01/27 2045 AC IV Metoprolol Tartrate 12.5 MG BID 01/28 2100 AC PO Metoprolol Tartrate 2.5 MG Q8 01/27 2200 DC 01/28 IV 0645 Nicotine 21 MG DAILY 01/28 0900 AC 01/28 TOP 1052 Omeprazole 40 MG DAILY AC 01/28 0913 AC 01/28 PO 1051 Pantoprazole Sodium 40 MG BID 01/27 2100 DC 01/27 IV 2250 Sodium Chloride 1,000 ML ONCE ONE 01/27 1615 DC 01/27 IV 01/27 2254 1616 Thiamine HCl 100 MG DAILY 01/29 0900 CAN Sodium Chloride 50 ML IV Thiamine HCl 50 MG DAILY 01/28 09 AC 01/28 PO 1052 Thiamine HCl 100 MG ONCE ONE 01/27 2300 DC 01/28 Sodium Chloride 50 ML IV 01/27 2359 0028 Review of Systems Review of Systems: As per HPI otherwise the 10 point complete review of systems are negative. Past History Travel History Traveled to [place] past 21 day No Medical History Blood Transfusion Hx: No Neurological: NONE [place]: [place] Cardiovascular: NONE Respiratory: NONE Gastrointestinal: NONE Hepatic: NONE Renal: nephrolithiasis Musculoskeletal: NONE Psychiatric: NONE Endocrine: diabetes Surgical History Surgical History: non-contributory Psychosocial History Where Do You Live? Home Services at Home: None Smoking Status: Current Everyday Smoker Exam & Diagnostic Data Vital Signs and I&O Vital Signs Date Time Temp Pulse Resp B/P B/P Pulse O2 O2 Flow FiO2 Mean Ox Delivery Rate 01/28 1451 98.5 104 20 152/70 92 Room Air 01/28 1026 Room Air 01/28 0709 97.6 95 12 146/74 93 Room Air 01/28 0645 76 20 150/100 01/28 0600 97.6 150/100 01/28 0400 100 16 01/28 0200 98 16 01/28 0000 98.5 118 20 160/88 01/28 0000 96 Room Air 01/27 2255 98.0 112 18 167/78 01/279 98.0 112 18 167/78 01/27 2218 94 Room Air 01/27 2210 98.5 118 20 160/88 96 Room Air 01/27 2028 98.0 118 20 167/79 95 Room Air 01/27 1856 110 16 196/88 94 Room Air 01/27 1656 98.1 105 16 168/81 95 Room Air 01/27 1538 97.7 111 20 173/86 94 Room Air 01/27 1530 96 Room Air Intake & Output 01/28 1600 01/28 0800 01/28 0000 Intake Total 534 1050 Output Total 300 Balance 534 750 Intake, IV 534 1000 Intake, Oral 50 Number 1 Bowel Movements Output, Urine 300 Patient 160 lb Weight Weight Bed scale Measurement Method Physical Exam: General: The patient is in no distress. Pleasant and cooperative. MSE: Alert and oriented 3. Good attention and concentration. Good short-term memory and fund of knowledge reflected through our conversation. Language is fluent with good comprehension and repetition. Cardiovascular: S1 and S2 are normal, regular rate and rhythm, and normal pedal pulses. Vision: Fundoscopic exam does not reveal any abnormalties. Visual ferreira are intact. Neurological: Extra ocular movements intact, FRED, face is symmetric, tongue midline, uvula raises equally in the midline, V1-V3 sensation to touch is intact and equal bilaterallty, sternocleidomastoid and trapezius are strong on both sides, muscles of mastication are strong. No dysarthria noted. Motor exam reveals left hemiparesis most notable distally in the hand. As a left pronator drift. Proximal leg weakness 3 out of 5. On the right side strength is preserved at 5-5 throughout the distribution distally and proximally. Sensory exam reveals loss of vibration to mid shearer. Hyperreflexive with upgoing toe on the left. Cerebellar exam does not reveal any dysmetria. Gait testing was deferred due to the patient's weakness. Last 48 Hours of Lab Results: Laboratory Tests 01/28 01/27 0700 1841 Chemistry Sodium (137 - 145 mmol/L) 137 Potassium (3.5 - 5.1 mmol/L) 4.4 Chloride (98 - 107 mmol/L) 98 Carbon Dioxide (22 - 30 mmol/L) 24 Anion Gap (5 - 16) 14 BUN (9 - 20 mg/dL) 21 H Creatinine (0.7 - 1.2 mg/dL) 0.6 L Estimated GFR (>60 ml/min) > 60 Glucose (65 - 99 mg/dL) 312 H Calcium (8.4 - 10.2 mg/dL) 9.0 Phosphorus (2.5 - 4.5 mg/dL) 3.2 Magnesium (1.6 - 2.3 mg/dL) 1.7 Total Bilirubin (0.2 - 1.3 mg/dL) 0.7 AST (17 - 59 U/L) 24 ALT (21 - 72 U/L) 26 Creatine Kinase (55 - 170 U/L) 401 H Albumin (3.5 - 5.0 g/dL) 3.2 L Triglycerides (<150 mg/dL) 76 Cholesterol (< 200 MG/DL) 127 LDL Cholesterol, Calc (65 - 129 mg/dL) 60 L HDL Cholesterol (40 - 60 mg/dL) 52 Cholesterol/HDL Ratio (0.00 - 4.88 %) 2 Vitamin B12 (239 - 931 pg/mL) 942 H Folate (2.76 - 20.0 ng/mL) > 20.0 H Hematology CBC w Diff NO MAN DIFF REQ WBC (4.8 - 10.8 /CUMM) 11.3 H RBC (4.70 - 6.10 /CUMM) 4.53 L Hgb (14.0 - 18.0 G/DL) 15.4 Hct (42 - 52 %) 45.2 MCV (80.0 - 94.0 FL) 99.7 H MCH (27.0 - 31.0 PG) 34.0 H MCHC (33.0 - 37.0 G/DL) 34.1 RDW (11.5 - 14.5 %) 13.1 Plt Count (130 - 400 /CUMM) 216 MPV (7.4 - 10.4 FL) 9.1 Gran % (42.2 - 75.2 %) 82.3 H Lymphocytes % (20.5 - 51.1 %) 10.0 L Monocytes % (1.7 - 9.3 %) 7.7 Eosinophils % (0 - 5 %) 0 Basophils % (0.0 - 2.0 %) 0 Absolute Granulocytes (1.4 - 6.5 /CUMM) 9.3 H Absolute Lymphocytes (1.2 - 3.4 /CUMM) 1.1 L Absolute Monocytes (0.10 - 0.60 /CUMM) 0.9 H Absolute Eosinophils (0.0 - 0.7 /CUMM) 0 Absolute Basophils (0.0 - 0.2 /CUMM) 0 Toxicology Urine Opiates Screen (>2000 NG/ML) < 100 Methadone Screen (>300 NG/ML) < 40 Barbiturate Screen (>200 NG/ML) < 60 Ur Phencyclidine Scrn (>25 NG/ML) < 6.00 Amphetamines Screen (>1000 NG/ML) < 100 U Benzodiazepines Scrn (>200 NG/ML) < 85 Urine Cocaine Screen (>300 NG/ML) < 50 Urine Cannabis Screen (>50 NG/ML) < 5.00 Urines Urinalysis LIGHT H Urine Color (YEL,AMB,STR) YEL Urine Clarity (CLEAR) CLEAR Urine pH (5.0 - 8.0) 6.0 Ur Specific [place] (1.001 - 1.035) 1.020 Urine Protein (NEG,<30 MG/DL) NEG Urine Ketones (NEG) >=80 Urine Nitrite (NEG) NEG Urine Bilirubin (NEG) NEG Urine Urobilinogen (0.1 - 1.0 EU/dl) 0.2 Ur Leukocyte Esterase (NEG) NEG Ur Microscopic SEDIMENT EXAMINED Urine RBC (0 - 5 /HPF) 1-3 Urine WBC (0 - 2 /HPF) RARE Ur Epithelial Cells (NONE,FEW) RARE Hyaline Casts (0/LPF) RARE H Urine Mucus (FEW,NONE) FEW Urine Hemoglobin (NEG) SMALL H Urine Glucose (N MG/DL) >=1000 H 01/27 1553 Chemistry Sodium (137 - 145 mmol/L) 135 L Potassium (3.5 - 5.1 mmol/L) 5.3 H Chloride (98 - 107 mmol/L) 95 L Carbon Dioxide (22 - 30 mmol/L) 23 Anion Gap (5 - 16) 17 H BUN (9 - 20 mg/dL) 23 H Creatinine (0.7 - 1.2 mg/dL) 0.8 Estimated GFR (>60 ml/min) > 60 BUN/Creatinine Ratio (7 - 25 %) 28.8 H Glucose (65 - 99 mg/dL) 388 H Hemoglobin A1c (4.2 - 5.8 %) 9.1 H Calcium (8.4 - 10.2 mg/dL) 9.8 Phosphorus (2.5 - 4.5 mg/dL) 4.1 Magnesium (1.6 - 2.3 mg/dL) 1.7 Total Bilirubin (0.2 - 1.3 mg/dL) 1.0 AST (17 - 59 U/L) 35 ALT (21 - 72 U/L) 25 Alkaline Phosphatase (< 127 U/L) 110 Creatine Kinase (55 - 170 U/L) 813 H Total Protein (6.3 - 8.2 g/dL) 7.0 Albumin (3.5 - 5.0 g/dL) 4.2 Globulin (1.9 - 4.2 gm/dL) 2.8 Albumin/Globulin Ratio (1.1 - 2.2 %) 1.5 TSH &T3 &Free T4 Intrp (0.27 - 4.20 uIU/mL) 1.260 Coagulation PT (9.4 - 12.5 SEC) 12.7 H INR (0.90 - 1.17) 1.16 APTT (25 - 37 SEC) 29 Hematology CBC w Diff NO MAN DIFF REQ WBC (4.8 - 10.8 /CUMM) 14.8 H RBC (4.70 - 6.10 /CUMM) 4.92 Hgb (14.0 - 18.0 G/DL) 16.5 Hct (42 - 52 %) 49.1 MCV (80.0 - 94.0 FL) 99.8 H MCH (27.0 - 31.0 PG) 33.6 H MCHC (33.0 - 37.0 G/DL) 33.7 RDW (11.5 - 14.5 %) 13.3 Plt Count (130 - 400 /CUMM) 243 MPV (7.4 - 10.4 FL) 8.8 Gran % (42.2 - 75.2 %) 86.3 H Lymphocytes % (20.5 - 51.1 %) 5.9 L Monocytes % (1.7 - 9.3 %) 7.8 Eosinophils % (0 - 5 %) 0 Basophils % (0.0 - 2.0 %) 0 Absolute Granulocytes (1.4 - 6.5 /CUMM) 12.8 H Absolute Lymphocytes (1.2 - 3.4 /CUMM) 0.9 L Absolute Monocytes (0.10 - 0.60 /CUMM) 1.2 H Absolute Eosinophils (0.0 - 0.7 /CUMM) 0 Absolute Basophils (0.0 - 0.2 /CUMM) 0 Serology Hepatitis A IgM Ab (NONREACTIVE) NONREACTIVE Hep Bs Antigen (NONREACTIVE) NONREACTIVE Hep B Core IgM Ab Conf (NONREACTIVE) NONREACTIVE Hepatitis C Antibody (NONREACTIVE) NONREACTIVE Toxicology Serum Alcohol (<10 MG/DL) < 10.0 Imaging/Other Studies: MRI brain reveals a right medial medullary wedge shaped infarction and to other diffusion positive punctate lesions within the superior Frontal lobe on the right. Together this is suggestive of a cardioembolic stroke. 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 Presently he does not have any tongue deviation but does have as expected some swallowing difficulties. Most likely cause is atrial fibrillation. Recommendations: 1. Consider starting empirical treatment with anticoagulation. 2. Telemetry to look for A. fib and if not found should get reveal monitor as outpatient. 3. Dysphagia diet until gets a swallow evaluation. 4. Start lisinopril 10 mg daily with atorvastatin 80 mg at night. Her are to baby aspirin 81 mg daily. 5. PT and OT. 6. Echo to rule out a thrombus in the ventricles. 7. Could obtain CTA of the neck and head. Consult Acknowledgment - Thank you for your consult request.
--- NOTE | 2018-01-28 19:29 | Cons- Cardiology ---
General Information and HPI Consulting Request Date of Consult: 01/28/18 Requested By: Narciso Tubbs MD Reason for Consult: Possible stroke History of Present Illness: The patient is a 77-year-old male who is brought to the hospital by family members after multiple falls over the past few days and slurred speech. He was admitted for suspicion of stroke. MRI revealed evidence of multiple embolic strokes. The patient is a poor historian. He denies any cardiac history. He complains of severe back pain. No chest pain. No palpitations. No orthopnea. He has had multiple recent falls. Some of the falls of been associated with head trauma. Allergies/Medications Allergies: Coded Allergies: No Known Allergies (01/27/18) Home Med List: Insulin Aspart, Recombinant (Novolog Flexpen) 100 UNIT/ML INSULN.PEN DM ( Reported) Insulin Detemir (Levemir Flextouch) 100 UNIT/ML (3 ML) INSULN.PEN 22-24 UNITS SC BID PRN DM (Reported) Sertraline HCl 100 MG TABLET 1 TAB PO DAILY MENTAL HEALTH (Reported) Current Medications: Current Medications Sig/Kamari Start time Last Medication Dose Route Stop Time Status Admin Albuterol Sulfate 2 PUF Q4P PRN 01/28 1045 AC INH Aspirin Buffered 81 MG DAILY 01/27 2025 AC 01/28 PO 1051 Atorvastatin Calcium 40 MG 1700 01/28 1700 AC 01/28 PO 1651 Cyanocobalamin/ 1 BAG DAILY@0 01/27 2200 DC 01/27 Thiamine/Pyridoxine IV 2257 Dextrose/Water 1,000 ML Heparin Sodium 5,000 UNIT Q8 01/27 2200 AC 01/28 (Porcine) SC 1458 Influenza Virus 0.5 ML ONCE ONE 01/28 0900 DC Vaccine IM 01/28 0901 Insulin Aspart 0 AT BEDTIME 01/28 2100 AC SC Insulin Aspart 0 TIDAC 01/28 1200 AC 01/28 SC 1916 Insulin Detemir 20 UNITS BID 01/28 0911 AC 01/28 SC 1052 Lisinopril 10 MG DAILY 01/28 1530 AC 01/28 PO 1654 Lorazepam 0 Q1P PRN 01/27 2045 AC IV Metoprolol Tartrate 12.5 MG BID 01/28 2100 AC PO Metoprolol Tartrate 2.5 MG Q8 01/27 2200 DC 01/28 IV 0645 Nicotine 21 MG DAILY 01/28 0900 AC 01/28 TOP 1052 Omeprazole 40 MG DAILY AC 01/28 0913 AC 01/28 PO 1051 Pantoprazole Sodium 40 MG BID 01/27 2100 DC 01/27 IV 2250 Sodium Chloride 1,000 ML ONCE ONE 01/27 1615 DC 01/27 IV 01/27 2254 1616 Thiamine HCl 100 MG DAILY 01/29 0900 CAN Sodium Chloride 50 ML IV Thiamine HCl 50 MG DAILY 01/28 09 AC 01/28 PO 1052 Thiamine HCl 100 MG ONCE ONE 01/27 2300 DC 01/28 Sodium Chloride 50 ML IV 01/27 2359 0028 Review of Systems Review of Systems: No rash. No tremor. No melena. All other systems were reviewed, and were noted to be negative. Past History Travel History Traveled to [place] past 21 day No Medical History Blood Transfusion Hx: No Neurological: NONE EENT: [place] Cardiovascular: NONE Respiratory: NONE Gastrointestinal: NONE Hepatic: NONE Renal: nephrolithiasis Musculoskeletal: NONE Psychiatric: NONE Endocrine: diabetes Surgical History Surgical History: non-contributory Family History Relations & Conditions If Any: FATHER Diabetes mellitus Psychosocial History Where Do You Live? Home Services at Home: None Smoking Status: Current Everyday Smoker Exam & Diagnostic Data Vital Signs and I&O Vital Signs Date Time Temp Pulse Resp B/P B/P Pulse O2 O2 Flow FiO2 Mean Ox Delivery Rate 01/28 1654 100 134/68 01/28 1451 98.5 104 20 152/70 92 Room Air 01/28 1026 Room Air 01/28 0709 97.6 95 12 146/74 93 Room Air 01/28 0645 76 20 150/100 01/28 0600 97.6 150/100 01/28 0400 100 16 01/28 0200 98 16 01/28 0000 98.5 118 20 160/88 01/28 0000 96 Room Air 01/27 2255 98.0 112 18 167/78 01/279 98.0 112 18 167/78 01/27 2218 94 Room Air 01/27 2210 98.5 118 20 160/88 96 Room Air 01/278 98.0 118 20 167/79 95 Room Air Intake & Output 01/28 1600 01/28 0800 01/28 0000 01/27 1600 01/27 0800 01/27 0000 Intake Total 038 135 4008 Output Total 475 300 Balance 375 534 750 Intake, IV 254 069 3262 Intake, Oral 400 50 Number 0 1 Bowel Movements Output, Urine 475 300 Patient 160 lb 140 lb Weight Weight Bed scale Reported by Patient Measurement Method Physical Exam: Gen: The patient is in no acute distress HEENT: Normal nose, ears, and oropharynx. Pupils equal bilaterally. Conjunctiva normal. Neck: Supple with no JVD, no masses, and no thyromegaly Lungs: Scattered rhonchi with normal respiratory effort Heart: RRR, S1, S2, no murmurs. No peripheral edema, 2+ pulses in the lower extremities bilaterally Abdomen: Soft, nontender, no masses. No hepatomegaly. No splenomegaly Extremities: No clubbing or cyanosis. Normal muscle strength in the upper and lower extremities Skin: Normal skin turgor with no skin ulcers or lesions noted. Neuro: Cranial nerves intact. Sensation intact Psych: Alert and oriented x 3 with appropriate affect Labs/Elder Results: Laboratory Tests 01/28 01/27 0700 1841 Chemistry Sodium (137 - 145 mmol/L) 137 Potassium (3.5 - 5.1 mmol/L) 4.4 Chloride (98 - 107 mmol/L) 98 Carbon Dioxide (22 - 30 mmol/L) 24 Anion Gap (5 - 16) 14 BUN (9 - 20 mg/dL) 21 H Creatinine (0.7 - 1.2 mg/dL) 0.6 L Estimated GFR (>60 ml/min) > 60 Glucose (65 - 99 mg/dL) 312 H Calcium (8.4 - 10.2 mg/dL) 9.0 Phosphorus (2.5 - 4.5 mg/dL) 3.2 Magnesium (1.6 - 2.3 mg/dL) 1.7 Total Bilirubin (0.2 - 1.3 mg/dL) 0.7 AST (17 - 59 U/L) 24 ALT (21 - 72 U/L) 26 Creatine Kinase (55 - 170 U/L) 401 H Albumin (3.5 - 5.0 g/dL) 3.2 L Triglycerides (<150 mg/dL) 76 Cholesterol (< 200 MG/DL) 127 LDL Cholesterol, Calc (65 - 129 mg/dL) 60 L HDL Cholesterol (40 - 60 mg/dL) 52 Cholesterol/HDL Ratio (0.00 - 4.88 %) 2 Vitamin B12 (239 - 931 pg/mL) 942 H Folate (2.76 - 20.0 ng/mL) > 20.0 H Hematology CBC w Diff NO MAN DIFF REQ WBC (4.8 - 10.8 /CUMM) 11.3 H RBC (4.70 - 6.10 /CUMM) 4.53 L Hgb (14.0 - 18.0 G/DL) 15.4 Hct (42 - 52 %) 45.2 MCV (80.0 - 94.0 FL) 99.7 H MCH (27.0 - 31.0 PG) 34.0 H MCHC (33.0 - 37.0 G/DL) 34.1 RDW (11.5 - 14.5 %) 13.1 Plt Count (130 - 400 /CUMM) 216 MPV (7.4 - 10.4 FL) 9.1 Gran % (42.2 - 75.2 %) 82.3 H Lymphocytes % (20.5 - 51.1 %) 10.0 L Monocytes % (1.7 - 9.3 %) 7.7 Eosinophils % (0 - 5 %) 0 Basophils % (0.0 - 2.0 %) 0 Absolute Granulocytes (1.4 - 6.5 /CUMM) 9.3 H Absolute Lymphocytes (1.2 - 3.4 /CUMM) 1.1 L Absolute Monocytes (0.10 - 0.60 /CUMM) 0.9 H Absolute Eosinophils (0.0 - 0.7 /CUMM) 0 Absolute Basophils (0.0 - 0.2 /CUMM) 0 Toxicology Urine Opiates Screen (>2000 NG/ML) < 100 Methadone Screen (>300 NG/ML) < 40 Barbiturate Screen (>200 NG/ML) < 60 Ur Phencyclidine Scrn (>25 NG/ML) < 6.00 Amphetamines Screen (>1000 NG/ML) < 100 U Benzodiazepines Scrn (>200 NG/ML) < 85 Urine Cocaine Screen (>300 NG/ML) < 50 Urine Cannabis Screen (>50 NG/ML) < 5.00 Urines Urinalysis LIGHT H Urine Color (YEL,AMB,STR) YEL Urine Clarity (CLEAR) CLEAR Urine pH (5.0 - 8.0) 6.0 Ur Specific [place] (1.001 - 1.035) 1.020 Urine Protein (NEG,<30 MG/DL) NEG Urine Ketones (NEG) >=80 Urine Nitrite (NEG) NEG Urine Bilirubin (NEG) NEG Urine Urobilinogen (0.1 - 1.0 EU/dl) 0.2 Ur Leukocyte Esterase (NEG) NEG Ur Microscopic SEDIMENT EXAMINED Urine RBC (0 - 5 /HPF) 1-3 Urine WBC (0 - 2 /HPF) RARE Ur Epithelial Cells (NONE,FEW) RARE Hyaline Casts (0/LPF) RARE H Urine Mucus (FEW,NONE) FEW Urine Hemoglobin (NEG) SMALL H Urine Glucose (N MG/DL) >=1000 H 01/27 1553 Chemistry Sodium (137 - 145 mmol/L) 135 L Potassium (3.5 - 5.1 mmol/L) 5.3 H Chloride (98 - 107 mmol/L) 95 L Carbon Dioxide (22 - 30 mmol/L) 23 Anion Gap (5 - 16) 17 H BUN (9 - 20 mg/dL) 23 H Creatinine (0.7 - 1.2 mg/dL) 0.8 Estimated GFR (>60 ml/min) > 60 BUN/Creatinine Ratio (7 - 25 %) 28.8 H Glucose (65 - 99 mg/dL) 388 H Hemoglobin A1c (4.2 - 5.8 %) 9.1 H Calcium (8.4 - 10.2 mg/dL) 9.8 Phosphorus (2.5 - 4.5 mg/dL) 4.1 Magnesium (1.6 - 2.3 mg/dL) 1.7 Total Bilirubin (0.2 - 1.3 mg/dL) 1.0 AST (17 - 59 U/L) 35 ALT (21 - 72 U/L) 25 Alkaline Phosphatase (< 127 U/L) 110 Creatine Kinase (55 - 170 U/L) 813 H Total Protein (6.3 - 8.2 g/dL) 7.0 Albumin (3.5 - 5.0 g/dL) 4.2 Globulin (1.9 - 4.2 gm/dL) 2.8 Albumin/Globulin Ratio (1.1 - 2.2 %) 1.5 TSH &T3 &Free T4 Intrp (0.27 - 4.20 uIU/mL) 1.260 Coagulation PT (9.4 - 12.5 SEC) 12.7 H INR (0.90 - 1.17) 1.16 APTT (25 - 37 SEC) 29 Hematology CBC w Diff NO MAN DIFF REQ WBC (4.8 - 10.8 /CUMM) 14.8 H RBC (4.70 - 6.10 /CUMM) 4.92 Hgb (14.0 - 18.0 G/DL) 16.5 Hct (42 - 52 %) 49.1 MCV (80.0 - 94.0 FL) 99.8 H MCH (27.0 - 31.0 PG) 33.6 H MCHC (33.0 - 37.0 G/DL) 33.7 RDW (11.5 - 14.5 %) 13.3 Plt Count (130 - 400 /CUMM) 243 MPV (7.4 - 10.4 FL) 8.8 Gran % (42.2 - 75.2 %) 86.3 H Lymphocytes % (20.5 - 51.1 %) 5.9 L Monocytes % (1.7 - 9.3 %) 7.8 Eosinophils % (0 - 5 %) 0 Basophils % (0.0 - 2.0 %) 0 Absolute Granulocytes (1.4 - 6.5 /CUMM) 12.8 H Absolute Lymphocytes (1.2 - 3.4 /CUMM) 0.9 L Absolute Monocytes (0.10 - 0.60 /CUMM) 1.2 H Absolute Eosinophils (0.0 - 0.7 /CUMM) 0 Absolute Basophils (0.0 - 0.2 /CUMM) 0 Serology Hepatitis A IgM Ab (NONREACTIVE) NONREACTIVE Hep Bs Antigen (NONREACTIVE) NONREACTIVE Hep B Core IgM Ab Conf (NONREACTIVE) NONREACTIVE Hepatitis C Antibody (NONREACTIVE) NONREACTIVE Toxicology Serum Alcohol (<10 MG/DL) < 10.0 Diagnostic Data EKG Results EKG tracing is independently reviewed, and reveals sinus tachycardia at 107 CXR Results No acute pulmonary process Other Results CT scan of the head: 1. No acute intracranial hemorrhage or territorial infarction. Mild chronic white matter microangiopathy. The possibility of a focal acute ischemic process cannot be ruled out on the basis of this study. 2. No evidence of acute cervical spine traumatic injury. Multilevel cervical spondylosis. MRI of the head: - There is an acute infarct within the right paramedian medulla on image 50 of series 3 and there is a small acute lacunar infarct within the right parasagittal frontal lobe on image 63 and 64 of series 3. - Global cerebral volume loss and mild chronic microangiopathy. 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 The cervical arterial vasculature is otherwise widely patent. The covering provider has been paged with these findings at 1:30 PM on 01/28/2018. Assessment/Plan Assessment/Plan The patient is a 77-year-old male with history of diabetes mellitus presenting with likely embolic stroke. desk monitor reveals sinus rhythm. Blood pressure was elevated on admission, and is now normal. Recommendations: * Follow neurology recommendations for treatment of CVA * Continue aspirin * Continue lisinopril and metoprolol * Echocardiogram * Carotid Doppler study * Monitor on telemetry for atrial fibrillation. If no atrial fibrillation is seen in the hospital, will plan on doing outpatient monitoring as well * In the absence of documented atrial fibrillation, there is noted definite indication for anticoagulation from a cardiac standpoint. Would follow neurology recommendations regarding starting either Plavix or anticoagulation in addition to aspirin. Consult Acknowledgment - Thank you for your consult request.
[2018-01-29] VITALS (8 sets, daily range): BP systolic 128–158; BP diastolic 62–76
--- NOTE | 2018-01-29 07:23 | PN- Housestaff ---
Ivelisse Patterson MD 01/29/18 0722: Subjective Follow-up For: Medial cerebellar syndrome Complaints: no complaints Tele-Events Since Last Visit: Normal sinus rhythm Subjective: Patient seen and examined at bedside. No overnight events. Patient lying in his bed comfortably. Patient was informed about the possibility of short-term rehab placement, but he said that he wants to go home. He denies any numbness/ tingling sensation/headache Review of Systems Constitutional: Reports: no symptoms. Cardiovascular: Reports: no symptoms. Respiratory: Reports: no symptoms. Gastrointestinal: Reports: no symptoms. Genitourinary: Reports: no symptoms. Objective Last 24 Hrs of Vital Signs/I&O Vital Signs Date Time Temp Pulse Resp B/P B/P Pulse O2 O2 Flow FiO2 Mean Ox Delivery Rate 01/29 1000 84 01/29 0838 89 01/29 0822 130/62 01/29 0822 130/64 01/29 0811 Room Air 01/29 0803 Room Air 01/29 0752 Room Air 01/29 0638 98.4 89 20 128/64 90 Room Air 01/29 0100 99.9 01/29 0006 100.2 94 20 132/68 90 Room Air 01/29 0000 Room Air 01/28 2132 106 132/68 01/28 1654 100 134/68 01/28 1600 93 Room Air 01/28 1451 98.5 104 20 152/70 92 Room Air Intake & Output 01/29 1600 01/29 0800 01/29 0000 Intake Total 120 450 Output Total 200 Balance 120 250 Intake, Oral 120 450 Output, Urine 200 Patient 166 lb Weight Physical Exam General Appearance: Alert, Oriented X3, Cooperative, No Acute Distress Cardiovascular: Regular Rate, Normal S1, Normal S2, No Murmurs Lungs: Clear to Auscultation Abdomen: Soft, No Tenderness, No Hepatospenomegaly Neurological: Normal Speech, Normal Tone, Sensation Intact, left side 4/5 Current Medications: Current Medications Sig/Kamari Start time Last Medication Dose Route Stop Time Status Admin Albuterol Sulfate 2 PUF Q4P PRN 01/28 1045 AC INH Aspirin Buffered 81 MG DAILY 01/27 202 AC 01/29 PO 0822 Atorvastatin Calcium 40 MG 1700 01/28 1700 AC 01/28 PO 1651 Heparin Sodium 5,000 UNIT Q8 01/27 2200 AC 01/29 (Porcine) SC 1215 Insulin Aspart 0 AT BEDTIME 01/28 2100 01/28 PA 2134 Insulin Aspart 0 TIDAC 01/28 1200 AC 01/29 PA 1215 Insulin Detemir 24 UNITS BID 01/29 0900 AC 01/29 SC 0851 Insulin Detemir 20 UNITS BID 01/28 0911 DC 01/28 PA 2134 Lisinopril 10 MG DAILY 01/28 1530 AC 01/29 PO 0822 Lorazepam 0 Q1P PRN 01/27 2045 AC IV Metoprolol Tartrate 12.5 MG BID 01/28 2100 AC 01/29 PO 0822 Nicotine 21 MG DAILY 01/28 09 AC 01/29 TOP 0823 Omeprazole 40 MG DAILY AC 01/28 913 AC 01/29 PO 0519 Thiamine HCl 50 MG DAILY 01/28 913 AC 01/29 PO 0822 Last 24 Hrs of Lab/Elder Results Last 24 Hrs of Labs/Mics: Laboratory Tests 01/29/18 0626: Anion Gap 8, Estimated GFR > 60, BUN/Creatinine Ratio 40.0 H, CBC w Diff NO MAN DIFF REQ, RBC 4.47 L, MCV 98.9 H, MCH 33.5 H, MCHC 33.9, RDW 13.1, MPV 9.5, Gran % 73.1, Lymphocytes % 17.1 L, Monocytes % 9.4 H, Eosinophils % 0.2, Basophils % 0.2, Absolute Granulocytes 6.1, Absolute Lymphocytes 1.4, Absolute Monocytes 0.8 H, Absolute Eosinophils 0, Absolute Basophils 0 Microbiology 01/29 2204 URINE ROUT: Urine Culture - RES Assessment/Plan Assessment: 7-year-old male who is active smoker, with past medical history significant for diabetes mellitus on insulin, and nephrolithiasis who has presented to ED due to slurred speech and fall. Vital signs Temperature 97.6, pulse rate 76, respiratory 20, blood pressure 150/100, saturation is 93 at room air. Assessment and plan 1. 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 Multiple fall assist gait mobility 4. Chronic alcohol use 5. Chronic smoking-active smoker * Continue telemetry monitoring * Vitals every shift * Patient is planned echocardiogram to look for any PFO. Neurology follow-up appreciated * Patient can work with physical therapy and occupational therapy. Advise cane/ walker given his multiple falls. Physical therapy suggested short-term rehab. Patient family updated * Patient counseled to quit smoking and alcohol. * Continue nicotine patches * Patient is already on CIWA protocol. Score 0 * Leukocytosis-unclear at this point. Urine culture no growth so far. * Patient had a CT of the neck which showed bilateral carotid artery stenosis [ focal high-grade stenoses involving the supraclinoid internal carotid arteries bilaterally]. Vascular surgery consult placed. Code-DNR/DNI Diet-consistent carbohydrate diet DVT prophylaxis-heparin Plan today-echocardiogram/vascular surgery consult. Problem List: 1. CVA (cerebral vascular accident) Pain Ratin Pain Location: none Pain Goal: Remain pain free Pain Plan: tylenol Tomorrow's Labs & Rationales: cbc,bep Narciso Tubbs MD 01/29/18 1228: Attending MD Review Statement Attending Statement Attending MD Statement: examined this patient, discuss w/resident/PA/FLATWORK FINISHER HAND, agreed w/resident/PA/FLATWORK FINISHER HAND, reviewed EMR data (avail) Attending Assessment/Plan: 77M PMH IDDM admitted overnight with recurrent falls, thought to have slurred speech by family, concerning for CVA. Patient feels well at this time and has no complaints. He does not have slurred speech. Cranial nerves intact, no facial droop or asymmetry, normal strength and sensation. Walked well with PT. 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 Internal carotid artery stenosis Plan - Continue on telemetry - Will speak with cardiology regarding ALEKSANDAR, as stroke is likely embolic - Vascular consult - ASA and statin - Neurology consult - Speech therapy eval - PT/OT - Continue home medications - DVT PPx
--- NOTE | 2018-01-29 08:14 | Discharge Summary ---
Visit Information Visit Dates Admission Date: 01/27/18 Discharge Date: 01/31/18 Hospital Course Course Attending Physician: Narciso Tubbs MD Primary Care Physician: Silvina JORDAN,[place] Hospital Course: The patient is a 77-year-old man with a past medical history significant for diabetes mellitus on insulin, nephrolithiasis, who was brought in by ambulance due to status speech that was noticed by family members. The history which is provided by the patient is not consistent. He is stated that he thought he had a stroke but he believed it is not the case. He said that his son thought he should come to the hospital and this is the reason that he is here. He believed that he has severe back pain and for this reason he might be having a stroke. His back pain was worse and seems to 3 days ago and he mentions that he has tenderness it is hard for him to get off the floor. Last June he had one admission to ED because of low back pain. He does not take any pain medication he mentions that movement worsens it. He was diagnosed with diabetes 23 years ago, first oral hypoglycemic agents were started for him and then almost 10 years ago insulin was started for him. His PCP is Dr. Cool, last visit with his PCP was last week, he states that the reason for this visit was possible stroke, because he has severe low back pain and diabetes and not being able to get off the floor. Yesterday he fell on the floor, he believes that his foot gave out on the floor, and water was spilled over on the floor in the kitchen and he just felt a slightly. He fell 2 times consequently yesterday. He denies any dizziness or confusion before after a fall. He was able to get up by himself after a fall. He states that he fell on his back later he says that he fell straight down, but he has bruises on his forehead. He confirms that he is head during this fall. The second fall happened in the same spot as the first fall exactly the same situation. He also admits that he had falls last week when he lost his balance and fell. Hospital course Right medial medullary stroke/right frontal lobe stroke. Bilateral high-grade stenosis involving the supraclinoid internal carotid artery Multiple fall Active smoking/alcohol use Patient was admitted in telemetry for slurring of speech to rule out stroke. Patient had MRI of the head and neck which showed acute infarct involving the right paramedian medulla and acute lacunar infarct within the right parasagittal frontal lobe. Patient was seen by neurology who suggested to continue aspirin and statin which was started initially upon admission. Given his multiple embolic stroke patient underwent echocardiogram to rule out any shunts. Echocardiogram showed stage I diastolic dysfunction with no valvular abnormalities. Patient was also seen by vascular surgery for his bilateral internal carotid artery stenosis who suggested to continue medical management. Choking episodes-patient was seen by swallow therapist and got a barium swallow done which showed a mild risk and aspiration. Patient is put on modified diet. Patient has been worked by physical therapy was suggested short-term rehab. Patient family aware. Allergies: Coded Allergies: No Known Allergies (01/27/18) Significant Procedures: Head MRI There is an acute infarct within the right paramedian medulla on image 50 of series 3 and there is a small acute lacunar infarct within the right parasagittal frontal lobe on image 63 and 64 of series 3. - Global cerebral volume loss and mild chronic microangiopathy. 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 The cervical arterial vasculature is otherwise widely patent. CTA neck 1. The known acute lacunar infarct in the right centrum semiovale and right parasagittal medulla seen by MRI are difficult to visualize by CT. No progressive infarcts are evident. No abnormal intracranial enhancement. 2. There are focal high-grade stenoses involving the supraclinoid internal carotid arteries bilaterally. There is a focal moderate stenosis involving the right cervical vertebral artery at the C3-C4 level due to advanced right-sided facet arthropathy, correlating with the MRA finding. Disposition Summary Disposition Principal Diagnosis: Stroke Additional Diagnosis: Multiple fall Discharge Disposition: SNF Discharge Instructions General Discharge Information Code Status: Do Not Resucitate/Intubat Patient's Diet: Heart healthy diet Patient's Activity: As tolerated Follow-Up Instructions/Appts: Follow-up with PCP/neurology Medications at Discharge Discharge Medications: Continue taking these medications: Sertraline HCl (Sertraline HCl) 100 MG TABLET 1 Tablet ORAL DAILY Qty = 30 Comments: Last Taken: NOT GIVEN IN HOSPITAL Time: Insulin Aspart, Recombinant (Novolog Flexpen) 100 UNIT/ML INSULN.PEN Units SC 3 TIMES DAILY BEFORE MEALS Qty = 15 Comments: Last Taken: 01/31/18 Time: 1300 Insulin Detemir (Levemir Flextouch) 100 UNIT/ML (3 ML) INSULN.PEN 22-24 Units SC TWICE DAILY as needed for DM Qty = 15 Comments: Last Taken: 01/31/18 Time: 0810 Start taking the following new medications: Atorvastatin Calcium (Atorvastatin Calcium) 40 MG TABLET 40 Milligram ORAL 5 PM Qty = 30 No Refills Comments: Last Taken: 01/30/18 Time: 1650 Lisinopril (Lisinopril) 10 MG TABLET 10 Milligram ORAL DAILY Qty = 30 No Refills Comments: Last Taken: 01/31/18 Time: 0800 Aspirin (Ecotrin*) 81 MG TABLET. 81 Milligram ORAL DAILY Qty = 30 No Refills Comments: Last Taken: 01/31/18 Time: 0800 Metoprolol Tartrate (Metoprolol Tartrate) 25 MG TABLET 12.5 Milligram ORAL TWICE DAILY Qty = 60 No Refills Comments: Last Taken: 01/31/18 Time: 0800 Copies To: Silvina JORDAN,Jonny; Roxane JORDAN,Jorge
[2018-01-29 08:37] LABS: ABSOLUTE BASOPHIL COUNT 0 /CUMM (0.0-0.2); ABSOLUTE EOSINOPHIL COUNT 0 /CUMM (0.0-0.7); ABSOLUTE GRANULOCYTE CT 6.1 /CUMM (1.4-6.5); ABSOLUTE LYMPH COUNT 1.4 /CUMM (1.2-3.4); ABSOLUTE MONOCYTE COUNT 0.8 /CUMM (0.10-0.60); BASOPHIL % 0.2 % (0.0-2.0); EOSINOPHIL % 0.2 % (0-5); GRANULOCYTE % 73.1 % (42.2-75.2); HEMATOCRIT 44.2 % (42-52); MEAN CORPUSCULAR HGB 33.5 PG (27.0-31.0); MEAN CORPUSCULAR HGB CONC 33.9 G/DL (33.0-37.0); MEAN CORPUSCULAR VOLUME 98.9 FL (80.0-94.0); MEAN PLATELET VOLUME 9.5 FL (7.4-10.4); PLATELET COUNT 206 /CUMM (130-400); RBC DISTRIBUTION WIDTH 13.1 % (11.5-14.5); RED BLOOD CELL CT 4.47 /CUMM (4.70-6.10); WHITE BLOOD CELL COUNT 8.4 /CUMM (4.8-10.8)
--- NOTE | 2018-01-29 08:41 | CT SCAN REPORT ---
EXAMINATION: CT ANGIOGRAM NECK WITH CONTRAST CT ANGIOGRAM BRAIN WITH CONTRAST CLINICAL INFORMATION: Stroke. Slurred speech. COMPARISON: MRI of the brain and MRA of the neck from the same day. TECHNIQUE: Test bolus sequences followed by intravenous administration 95 mL of Optiray 320. Helical imaging was performed in the axial plane from the thoracic inlet to the skull vertex. Delayed postcontrast imaging of the head was also performed. The data was processed at the human performance technologist workstation for generation of MIP sequences. Angled MIPs and volume rendered reformatted images were also generated at an offline 3D workstation. Stenoses are assessed in accordance with NASCET criteria unless otherwise indicated. DLP: 2577 mGy-cm FINDINGS: Nonvascular: There is breathing artifact in the lung apices along with some paraseptal emphysematous changes most notable in the right upper lobe. No upper mediastinal adenopathy. No discrete thyroid lesions. The visualized pharyngeal and laryngeal contours as well as the imaged oral cavity appear grossly unremarkable. No cervical adenopathy. The parotid and submandibular glands are symmetric in attenuation without evidence of sialadenitis. The orbits are notable for bilateral ocular lens extractions. Intracranially there is no evidence of hemorrhage. There is moderate generalized prominence of the ventricles, sulci, and extra-axial CSF spaces. There is no mass effect, hydrocephalus, or shift of the normally midline structures. No abnormal intracranial enhancement. The punctate focus of restricted diffusion in the high right centrum semiovale seen on the prior MRI is difficult to visualize by CT. The right parasagittal medullary infarct is also difficult to visualize by CT due to streak artifact. No evidence of progressive territorial infarct. No acute osseous abnormalities. The paranasal sinuses, nasal cavity, middle ear cavities, and mastoid air cells are clear apart from trace fluid in the mastoid tips bilaterally. The temporomandibular joints articulate normally. There is multilevel cervical spondylosis without evidence of high-grade bony canal stenosis. Prominent anterior bridging osteophytes are visualized at C4-C5 and C5-C6. There is periodontal and periapical lucency involving the remaining right mandibular molar with surrounding sclerosis compatible with condensing osteitis. Vascular: The aortic arch demonstrates mild calcified and noncalcified atheroma but is normal in caliber. There is calcification at the origin of the left common carotid artery and left subclavian artery without convincing evidence of hemodynamically significant stenosis, accounting for some streak artifact related to dense venous contrast at the thoracic inlet. The origin of the right common carotid artery appears unremarkable. The origin of the right vertebral artery and left vertebral artery appear unremarkable coming for mild atherosclerotic calcification. The proximal subclavian arteries appear grossly maintained. The common carotid arteries appear normal in caliber with mild atherosclerotic calcification distally. There is some calcified and noncalcified atheroma at the carotid bulb extending into the proximal left internal carotid artery without hemodynamically significant stenosis. Otherwise the cervical left internal carotid artery appears normal in caliber. There is mild atherosclerotic calcification involving the right carotid bulb and proximal right internal carotid artery. The proximal right internal carotid artery runs a somewhat medialized course with a mild impression on the posterior pharyngeal wall. There is some tortuosity of the right cervical internal carotid artery. No right cervical internal carotid artery hemodynamically significant stenosis. The right vertebral artery appears normal in caliber throughout its cervical course, apart from moderate extrinsic compression at the C3-C4 level due to advanced right facet arthropathy, correlating with the MRA finding. The left vertebral artery appears unremarkable throughout its cervical course. The distal right internal carotid artery is notable for a focal high-grade stenosis involving its supraclinoid segment after the ophthalmic origin with reconstitution of the carotid terminus. The left distal internal carotid artery similarly demonstrates a focal high-grade stenosis of its supraclinoid segment with reconstitution at the carotid terminus. Both internal carotid arteries are calcified in their cavernous segments. The anterior cerebral arteries and the middle cerebral arteries as well as the anterior communicating arteries appear fairly normal in caliber and configuration without evidence of high-grade stenosis or focal occlusion. No evidence of anterior circulation aneurysm. Neither posterior communicating arteries are well visualized, a normal variant. The distal vertebral arteries, basilar artery and vertebrobasilar branches appear normal in caliber and configuration without evidence of focal high-grade stenosis, occlusion, or aneurysm. The major dural venous sinuses, deep and cortical veins opacify normally. IMPRESSION: 1. The known acute lacunar infarct in the right centrum semiovale and right parasagittal medulla seen by MRI are difficult to visualize by CT. No progressive infarcts are evident. No abnormal intracranial enhancement. 2. There are focal high-grade stenoses involving the supraclinoid internal carotid arteries bilaterally. There is a focal moderate stenosis involving the right cervical vertebral artery at the C3-C4 level due to advanced right-sided facet arthropathy, correlating with the MRA finding.
--- NOTE | 2018-01-29 11:28 | ULTRASOUND REPORT ---
EXAMINATION: US DUPLEX BILATERAL CAROTID CLINICAL INFORMATION: Carotid stenosis. COMPARISON: No similar prior examinations available for comparison. TECHNIQUE: Real-time ultrasound and Doppler techniques (integrating B-mode 2D vascular images, Doppler spectral analysis and color flow Doppler imaging) were utilized to interrogate the extracranial carotid and vertebral arteries bilaterally. The degree of stenosis determined by criteria similar to NASCET. FINDINGS: Right side: 1. Mild to moderate amount of heterogeneous plaque is seen in the ECA/ICA region. 2. The common carotid artery velocity is 109 cm/s. 3. The internal carotid artery velocities are 159 cm/s systolic and 8 cm/s diastolic. 4. The external carotid artery velocity is 101 cm/s. Left side: 1. Mild to moderate amount of heterogeneous plaque is seen in the ECA/ICA region. 2. The common carotid artery velocity is 90 cm/s. 3. The internal carotid artery velocities are 109 cm/s systolic and 12 cm/s diastolic. 4. The external carotid artery velocity is 96 cm/s. ADDITIONAL FINDINGS: The vertebral arteries show antegrade flow. IMPRESSION: 1. RIGHT: Hemodynamically significant stenosis of the proximal right internal carotid artery corresponding to a 50-79% stenosis by velocity criteria. 2. LEFT: Minimal, nonhemodynamically significant stenosis of the proximal left internal carotid artery corresponding to a 0-49% stenosis by velocity criteria. 3. No evidence for hemodynamically significant stenosis in the external carotid arteries.
--- NOTE | 2018-01-29 11:47 | Cons- Vascular Surgery ---
General Information and HPI Consulting Request Date of Consult: 01/29/18 Requested By: Narciso Tubbs MD Reason for Consult: carotid stenosis, cva Source of Information: patient, old records Exam Limitations: no limitations History of Present Illness: Pt is a 77y/o M with slurred speech and fall from medullary/lacunar cva. MRI also significant for Rt frontal infarcts and US reveals RICAS 50-79%. Neither MRA and CTA revealed same stenosis (CTA b/l supraclinoid stenoses). Allergies/Medications Allergies: Coded Allergies: No Known Allergies (01/27/18) Home Med List: Insulin Aspart, Recombinant (Novolog Flexpen) 100 UNIT/ML INSULN.PEN DM ( Reported) Insulin Detemir (Levemir Flextouch) 100 UNIT/ML (3 ML) INSULN.PEN 22-24 UNITS SC BID PRN DM (Reported) Sertraline HCl 100 MG TABLET 1 TAB PO DAILY MENTAL HEALTH (Reported) Current Medications: Current Medications Sig/Kamari Start time Last Medication Dose Route Stop Time Status Admin Albuterol Sulfate 2 PUF Q4P PRN 01/28 1045 AC INH Aspirin Buffered 81 MG DAILY 01/27 2025 AC 01/29 PO 0822 Atorvastatin Calcium 40 MG 1700 01/28 1700 AC 01/28 PO 1651 Heparin Sodium 5,000 UNIT Q8 01/27 2200 AC 01/29 (Porcine) SC 0520 Insulin Aspart 0 AT BEDTIME 01/28 2100 AC 01/28 SC 2134 Insulin Aspart 0 TIDAC 01/28 1200 AC 01/29 SC 0850 Insulin Detemir 24 UNITS BID 01/29 0900 AC 01/29 SC 0851 Insulin Detemir 20 UNITS BID 01/28 0911 DC 01/28 SC 2134 Lisinopril 10 MG DAILY 01/28 1530 AC 01/29 PO 0822 Lorazepam 0 Q1P PRN 01/27 2045 AC IV Metoprolol Tartrate 12.5 MG BID 01/28 2100 AC 01/29 PO 0822 Nicotine 21 MG DAILY 01/28 0900 AC 01/29 TOP 0823 Omeprazole 40 MG DAILY AC 01/28 0913 AC 01/29 PO 0519 Thiamine HCl 50 MG DAILY 01/28 0913 AC 01/29 PO 0822 Past History Medical History Blood Transfusion Hx: No Neurological: NONE EENT: BOIS FORTE Cardiovascular: NONE Respiratory: NONE Gastrointestinal: NONE Hepatic: NONE Renal: nephrolithiasis Musculoskeletal: NONE Psychiatric: NONE Endocrine: diabetes Surgical History Pertinent Surgical History: non-contributory Family History Relations & Conditions If Any: FATHER Diabetes mellitus Psychosocial History Where Do You Live? Home Services at Home: None Smoking Status: Current Everyday Smoker Review of Systems Review of Systems: as above Exam & Diagnostic Data Vital Signs and I&O Vital Signs Date Time Temp Pulse Resp B/P B/P Pulse O2 O2 Flow FiO2 Mean Ox Delivery Rate 01/29 0838 89 01/29 0822 130/62 01/29 0822 130/64 01/29 0811 Room Air 01/29 0803 Room Air 01/29 0752 Room Air 01/29 0638 98.4 89 20 128/64 90 Room Air 01/29 0100 99.9 01/29 0006 100.2 94 20 132/68 90 Room Air 01/29 0000 Room Air 01/28 2132 106 132/68 01/28 1654 100 134/68 01/28 1600 93 Room Air 01/28 1451 98.5 104 20 152/70 92 Room Air Intake & Output 01/29 1600 01/29 0800 01/29 0000 01/28 1600 01/28 0800 01/28 0000 Intake Total 120 450 039 705 6154 Output Total 200 475 300 Balance 120 250 375 534 750 Intake, IV 742 277 2660 Intake, Oral 120 450 400 50 Number 0 1 Bowel Movements Output, Urine 200 475 300 Patient 166 lb 160 lb Weight Weight Bed scale Measurement Method Physical Exam: gen a&o x3 neck no bruits chest cta b heart rrr s1s2 abd soft ext from 5/5 power all 4 ext pulses b/l 2+ fem Last 24 Hours of Labs: Laboratory Tests 01/29 626 Chemistry Sodium (137 - 145 mmol/L) 138 Potassium (3.5 - 5.1 mmol/L) 3.7 Chloride (98 - 107 mmol/L) 100 Carbon Dioxide (22 - 30 mmol/L) 29 Anion Gap (5 - 16) 8 BUN (9 - 20 mg/dL) 20 Creatinine (0.7 - 1.2 mg/dL) 0.5 L Estimated GFR (>60 ml/min) > 60 BUN/Creatinine Ratio (7 - 25 %) 40.0 H Hematology CBC w Diff NO MAN DIFF REQ WBC (4.8 - 10.8 /CUMM) 8.4 RBC (4.70 - 6.10 /CUMM) 4.47 L Hgb (14.0 - 18.0 G/DL) 15.0 Hct (42 - 52 %) 44.2 MCV (80.0 - 94.0 FL) 98.9 H MCH (27.0 - 31.0 PG) 33.5 H MCHC (33.0 - 37.0 G/DL) 33.9 RDW (11.5 - 14.5 %) 13.1 Plt Count (130 - 400 /CUMM) 206 MPV (7.4 - 10.4 FL) 9.5 Gran % (42.2 - 75.2 %) 73.1 Lymphocytes % (20.5 - 51.1 %) 17.1 L Monocytes % (1.7 - 9.3 %) 9.4 H Eosinophils % (0 - 5 %) 0.2 Basophils % (0.0 - 2.0 %) 0.2 Absolute Granulocytes (1.4 - 6.5 /CUMM) 6.1 Absolute Lymphocytes (1.2 - 3.4 /CUMM) 1.4 Absolute Monocytes (0.10 - 0.60 /CUMM) 0.8 H Absolute Eosinophils (0.0 - 0.7 /CUMM) 0 Absolute Basophils (0.0 - 0.2 /CUMM) 0 Assessment/Plan Assessment/Plan possible Rt carotid stenosis NOT likely contributing to recent CVA medical therapy only at this point will follow carotid stenosis as outpt Consult Acknowledgment - Thank you for your consult request.
--- NOTE | 2018-01-29 12:46 | PN- Cardiology ---
Subjective Subjective: The patient reports that he is feeling better. Speech is normal. Swallowing has improved. No palpitations. No chest pain. No diaphoresis. No nausea or vomiting Objective Vital Signs and I&Os Vital Signs Date Time Temp Pulse Resp B/P B/P Pulse O2 O2 Flow FiO2 Mean Ox Delivery Rate 01/29 1000 84 01/29 0838 89 01/29 0822 130/62 01/29 0822 130/64 01/29 0811 Room Air 01/29 0803 Room Air 01/29 0752 Room Air 01/29 0638 98.4 89 20 128/64 90 Room Air 01/29 0100 99.9 01/29 0006 100.2 94 20 132/68 90 Room Air 01/29 0000 Room Air 01/28 2132 106 132/68 01/28 1654 100 134/68 01/28 1600 93 Room Air 01/28 1451 98.5 104 20 152/70 92 Room Air Intake & Output 01/29 1600 01/29 0800 01/29 0000 01/28 1600 01/28 0800 01/28 0000 Intake Total 120 450 032 077 5569 Output Total 200 475 300 Balance 120 250 375 534 750 Intake, IV 355 876 4528 Intake, Oral 120 450 400 50 Number 0 1 Bowel Movements Output, Urine 200 475 300 Patient 166 lb 160 lb Weight Weight Bed scale Measurement Method Physical Exam: Gen: The patient is in no acute distress HEENT: Normal nose, ears, and oropharynx. Pupils equal bilaterally. Conjunctiva normal. Neck: Supple with no JVD, no masses, and no thyromegaly Lungs: Scattered rhonchi with normal respiratory effort Heart: RRR, S1, S2, no murmurs. No peripheral edema, 2+ pulses in the lower extremities bilaterally Abdomen: Soft, nontender, no masses. No hepatomegaly. No splenomegaly Extremities: No clubbing or cyanosis. Normal muscle strength in the upper and lower extremities Skin: Normal skin turgor with no skin ulcers or lesions noted. Neuro: Cranial nerves intact. Sensation intact Psych: Alert and oriented x 3 with appropriate affect Current Medications: Current Medications Sig/Kamari Start time Last Medication Dose Route Stop Time Status Admin Albuterol Sulfate 2 PUF Q4P PRN 01/28 1045 AC INH Aspirin Buffered 81 MG DAILY 01/27 2025 AC 01/29 PO 0822 Atorvastatin Calcium 40 MG 1700 09/17 1700 AC 01/28 PO 1651 Heparin Sodium 5,000 UNIT Q8 01/27 2200 AC 01/29 (Porcine) SC 1215 Insulin Aspart 0 AT BEDTIME 01/28 2100 AC 01/28 SC 2134 Insulin Aspart 0 TIDAC 01/28 1200 AC 01/29 SC 1215 Insulin Detemir 24 UNITS BID 01/29 0900 AC 01/29 SC 0851 Insulin Detemir 20 UNITS BID 01/28 0911 DC 01/28 SC 2134 Lisinopril 10 MG DAILY 01/28 1530 AC 01/29 PO 0822 Lorazepam 0 Q1P PRN 01/27 204 AC IV Metoprolol Tartrate 12.5 MG BID 01/28 2100 AC 01/29 PO 0822 Nicotine 21 MG DAILY 01/28 09 AC 01/29 TOP 0823 Omeprazole 40 MG DAILY AC 01/28 09 AC 01/29 PO 0519 Thiamine HCl 50 MG DAILY 01/28 09 AC 01/29 PO 0822 Results Last 48 Hrs of Labs/Mics: Laboratory Tests 01/29/18 0626: Anion Gap 8, Estimated GFR > 60, BUN/Creatinine Ratio 40.0 H, CBC w Diff NO MAN DIFF REQ, RBC 4.47 L, MCV 98.9 H, MCH 33.5 H, MCHC 33.9, RDW 13.1, MPV 9.5, Gran % 73.1, Lymphocytes % 17.1 L, Monocytes % 9.4 H, Eosinophils % 0.2, Basophils % 0.2, Absolute Granulocytes 6.1, Absolute Lymphocytes 1.4, Absolute Monocytes 0.8 H, Absolute Eosinophils 0, Absolute Basophils 0 01/28/18 0700: Anion Gap 14, Estimated GFR > 60, Glucose 312 H, Calcium 9.0, Phosphorus 3.2, Magnesium 1.7, Total Bilirubin 0.7, AST 24, ALT 26, Creatine Kinase 401 H, Albumin 3.2 L, Triglycerides 76, Cholesterol 127, LDL Cholesterol, Calc 60 L, HDL Cholesterol 52, Cholesterol/HDL Ratio 2, Vitamin B12 942 H, Folate > 20.0 H, CBC w Diff NO MAN DIFF REQ, RBC 4.53 L, MCV 99.7 H, MCH 34.0 H, MCHC 34.1, RDW 13.1, MPV 9.1, Gran % 82.3 H, Lymphocytes % 10.0 L, Monocytes % 7.7, Eosinophils % 0, Basophils % 0, Absolute Granulocytes 9.3 H, Absolute Lymphocytes 1.1 L, Absolute Monocytes 0.9 H, Absolute Eosinophils 0, Absolute Basophils 0 01/27/18 2204: Ur Random Creatinine 40.4, U Random Total Protein 8, Protein/Creatinin Ratio 0.1 01/27/18 1841: Urine Opiates Screen < 100, Methadone Screen < 40, Barbiturate Screen < 60, Ur Phencyclidine Scrn < 6.00, Amphetamines Screen < 100, U Benzodiazepines Scrn < 85, Urine Cocaine Screen < 50, Urine Cannabis Screen < 5.00, Urinalysis LIGHT H , Urine Color YEL, Urine Clarity CLEAR, Urine pH 6.0, Ur Specific [place] 1.020, Urine Protein NEG, Urine Ketones >=80, Urine Nitrite NEG, Urine Bilirubin NEG, Urine Urobilinogen 0.2, Ur Leukocyte Esterase NEG, Ur Microscopic SEDIMENT EXAMINED, Urine RBC 1-3, Urine WBC RARE, Ur Epithelial Cells RARE, Hyaline Casts RARE H, Urine Mucus FEW, Urine Hemoglobin SMALL H, Urine Glucose >=1000 H 01/27/18 1553: Anion Gap 17 H, Estimated GFR > 60, BUN/Creatinine Ratio 28.8 H, Glucose 388 H, Hemoglobin A1c 9.1 H, Calcium 9.8, Phosphorus 4.1, Magnesium 1.7, Total Bilirubin 1.0, AST 35, ALT 25, Alkaline Phosphatase 110, Creatine Kinase 813 H, Total Protein 7.0, Albumin 4.2, Globulin 2.8, Albumin/Globulin Ratio 1.5, TSH & T3 &Free T4 Intrp 1.260, PT 12.7 H, INR 1.16, APTT 29, CBC w Diff NO MAN DIFF REQ, RBC 4.92, MCV 99.8 H, MCH 33.6 H, MCHC 33.7, RDW 13.3, MPV 8.8, Gran % 86.3 H, Lymphocytes % 5.9 L, Monocytes % 7.8, Eosinophils % 0, Basophils % 0, Absolute Granulocytes 12.8 H, Absolute Lymphocytes 0.9 L, Absolute Monocytes 1.2 H, Absolute Eosinophils 0, Absolute Basophils 0, Hepatitis A IgM Ab NONREACTIVE, Hep Bs Antigen NONREACTIVE, Hep B Core IgM Ab Conf NONREACTIVE, Hepatitis C Antibody NONREACTIVE, Serum Alcohol < 10.0 Recent Imaging Studies: Carotid Doppler study 01/29/18: 1. RIGHT: Hemodynamically significant stenosis of the proximal right internal carotid artery corresponding to a 50-79% stenosis by velocity criteria. 2. LEFT: Minimal, nonhemodynamically significant stenosis of the proximal left internal carotid artery corresponding to a 0-49% stenosis by velocity criteria. 3. No evidence for hemodynamically significant stenosis in the external carotid arteries. CT angiogram of the neck: 1. The known acute lacunar infarct in the right centrum semiovale and right parasagittal medulla seen by MRI are difficult to visualize by CT. No progressive infarcts are evident. No abnormal intracranial enhancement. 2. There are focal high-grade stenoses involving the supraclinoid internal carotid arteries bilaterally. There is a focal moderate stenosis involving the right cervical vertebral artery at the C3-C4 level due to advanced right-sided facet arthropathy, correlating with the MRA finding. Assessment/Plan Assessment/Plan Assessment: 1. Diabetes melena 2. CVA, likely embolic 3. Hypertension 4. Moderate right carotid stenosis Plan: * Continue aspirin * Check with neurology regarding adding Plavix in addition to aspirin * Continue hypertension medication * Echocardiogram pending * ALEKSANDAR was ordered, ramos Ramírez spoke to the patient and he declines ALEKSANDAR. Given the patient's preference, it is reasonable to hold off for now on ALEKSANDAR * Continue to monitor on telemetry for atrial fibrillation. If atrial for ablation is seen, then anticoagulation would be recommended. Will consider possible longer term monitoring as an outpatient for atrial fibrillation Continue telemetry? Yes
[2018-01-29] MEDS ORDERED: ATORVASTATIN CA40 M1 PO (14:41)
[2018-01-29] MEDS ORDERED: ASPIRIN EC81 M1 PO (14:41)
[2018-01-29] MEDS ORDERED: LISINOPRIL10 M1 PO (14:41)
--- NOTE | 2018-01-29 14:43 | Patient Discharge Instructions ---
Discharge Instructions General Discharge Information You were seen/treated for: Stroke Watch for these problems: In case of dizziness, fall, numbness, weakness please go to the nearest emergency room Special Instructions: Please follow-up with your primary care provider within 1-2 weeks of discharge and let them know about your recent admission at [facility] Diet Continue normal diet: No Recommended Diet: Diabetic Activity Full Activity/No Limits: No Activity Self Limited: Yes Acute Coronary Syndrome Inclusion Criteria At DC or during hospital stay patient has or had the following: ACS DIAGNOSIS No Discharge Core Measures Meds if any: Prescribed or Continued at Discharge Meds if any: NOT Prescribed or Continued at Discharge Congestive Heart Failure Inclusion Criteria At DC or during hospital stay patient has or had the following: CHF DIAGNOSIS No Discharge Core Measures Meds if any: Prescribed or Continued at Discharge Meds if any: NOT Prescribed or Continued at Discharge Cerebrovascular accident Inclusion Criteria At [facility] or during hospital stay patient has or had the following: CVA/TIA Diagnosis Yes Discharge Core Measures Meds if any: Prescribed or Continued at Discharge Antithrombotic No Statin (required if LDL =>70) Yes Anticoagulant No Meds if any: NOT Prescribed or Continued at Discharge Venous thromboembolism Inclusion Criteria VTE Diagnosis No VTE Type NONE VTE Confirmed by (Test) NONE Discharge Core Measures - Per Current guidelines, there needs to be overlap - treatment for the first 5 days of Warfarin therapy. - If discharged on Warfarin prior to 5 days of - overlap therapy, the patient will need to be - assessed for post discharge needs including - *Post discharge parental anticoagulation - *Warfarin and/or parental anticoagulation education - *Follow up date to check INR post discharge At least 5 days overlap therapy as Inpatient No Meds if any: Prescribed or Continued at Discharge Note: Overlap Therapy is Warfarin and Anticoagulant Meds if any: NOT Prescribed or Continued at Discharge
[2018-01-29] MEDS ORDERED: METOPROLOL TART25 M1 PO (15:25)
--- NOTE | 2018-01-29 15:35 | RADIOLOGY REPORT ---
EXAMINATION: CR MODIFIED BARIUM SWALLOW CLINICAL INFORMATION: Choking on liquids. Stroke. COMPARISON: None. TECHNIQUE: A modified barium swallow was performed with speech pathologist in attendance. Pur?e, honey thick, nectar thick, thin, bread, and cracker consistencies were given to the patient and the swallowing mechanism was observed fluoroscopically with several spot films taken using the last image hold feature. FLUOROSCOPY TIME: 2 minutes 10 seconds. FINDINGS: With thin liquid barium, simba aspiration is seen, inducing a strong cough reflex, which partially clears the aspirated liquid. Mild pooling of contrast in the vallecula is seen. With all other consistencies, the oropharyngeal phase of swallowing is normal with no laryngeal or nasopharyngeal aspiration seen. No significant pooling of contrast is noted in the valleculae or piriform sinuses. IMPRESSION: Aspiration with sensation is seen with thin liquid barium. Slight pooling of contrast in the valleculae is seen with thin liquids. Speech pathologist assessment issued separately.
[2018-01-30] VITALS (9 sets, daily range): BP systolic 140–152; BP diastolic 68–88
--- NOTE | 2018-01-30 07:28 | PN- Housestaff ---
Leonardo JORDAN,Ivelisse 01/30/18 0727: Subjective Follow-up For: Stroke Tele-Events Since Last Visit: Normal sinus rhythm Subjective: Patient seen and examined at bedside. No overnight events. Patient is eager to go home. He is not happy with the discharge disposition to short-term rehab. Otherwise he denies chest pain/dizziness/numbness/weakness. Review of Systems Constitutional: Reports: no symptoms. Cardiovascular: Reports: no symptoms. Respiratory: Reports: no symptoms. Gastrointestinal: Reports: no symptoms. Objective Last 24 Hrs of Vital Signs/I&O Vital Signs Date Time Temp Pulse Resp B/P B/P Pulse O2 O2 Flow FiO2 Mean Ox Delivery Rate 01/30 1043 82 140/74 01/30 1043 80 140/74 01/30 0821 98.2 01/30 0400 90 142/88 01/30 0200 90 140/80 01/30 0000 Room Air 01/30 0000 92 144/70 01/29 2352 98.5 81 20 140/70 91 Room Air 01/29 2319 98.3 95 18 158/70 91 Room Air 01/29 2200 92 144/70 01/29 2047 92 144/70 01/29 2000 92 144/70 01/29 1834 98.6 100 18 140/76 01/29 1600 Room Air Room Air 01/29 1454 98.2 88 18 138/62 91 01/29 1441 80 Intake & Output 01/30 1600 01/30 0800 01/30 0000 Intake Total 120 30 Output Total Balance 120 30 Intake, Oral 120 30 Patient 169 lb Weight Physical Exam General Appearance: Alert, Oriented X3, Cooperative, No Acute Distress Cardiovascular: Regular Rate, Normal S1, Normal S2, No Murmurs Lungs: Clear to Auscultation Abdomen: Soft, No Tenderness, No Hepatospenomegaly Neurological: Normal Speech, Normal Tone, Sensation Intact, Cranial Nerves 3-12 NL, left side weakness Current Medications: Current Medications Sig/Kamari Start time Last Medication Dose Route Stop Time Status Admin Albuterol Sulfate 2 PUF Q4P PRN 01/28 1045 AC INH Aspirin Buffered 81 MG DAILY 01/27 2025 AC 01/30 PO 1043 Atorvastatin Calcium 40 MG 1700 01/28 1700 AC 01/29 PO 1719 Bisacodyl 10 MG ONCE ONE 01/30 0745 DC 01/30 SD 01/30 0746 1006 Heparin Sodium 5,000 UNIT Q8 01/27 2200 AC 01/30 (Porcine) SC 0628 Insulin Aspart 0 AT BEDTIME 01/28 2100 AC 01/29 SC 2047 Insulin Aspart 0 TIDAC 01/28 1200 AC 01/30 SC 0828 Insulin Detemir 24 UNITS BID 01/29 0900 AC 01/30 SC 1043 Lisinopril 10 MG DAILY 01/28 1530 AC 01/30 PO 1043 Lorazepam 0 Q1P PRN 01/27 2045 AC IV Metoprolol Tartrate 12.5 MG BID 01/28 2100 AC 01/30 PO 1043 Nicotine 21 MG DAILY 01/28 09 AC 01/30 TOP 1043 Omeprazole 40 MG DAILY AC 01/28 913 AC 01/30 PO 0628 Senna 187 MG AT BEDTIME 01/30 2100 AC PO Thiamine HCl 50 MG DAILY 01/28 913 AC 01/30 PO 1043 Last 24 Hrs of Lab/Elder Results Last 24 Hrs of Labs/Mics: Laboratory Tests 01/30/1818: Anion Gap 9, Estimated GFR > 60, BUN/Creatinine Ratio 36.0 H Assessment/Plan Assessment: 77-year-old male who is active smoker, with past medical history significant for diabetes mellitus on insulin, and nephrolithiasis who has presented to ED due to slurred speech and fall. Assessment and plan 1. 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 Multiple fall assist gait mobility 4. Chronic alcohol use 5. Chronic smoking-active smoker * Continue telemetry monitoring * Vitals every shift * Patient had an echocardiogram done. We will follow with the results. * Neurology follow-up appreciated * Patient is working with physical therapy.Physical therapy suggested short-term rehab. Patient family updated. * Patient counseled to quit smoking and alcohol. * Continue nicotine patches * Patient is already on CIWA protocol. Score 0 * Leukocytosis-unclear at this point. Urine culture no growth so far. * Patient had a CT of the neck which showed bilateral carotid artery stenosis [ focal high-grade stenoses involving the supraclinoid internal carotid arteries bilaterally]. Vascular surgery consulted who said medical management. Plan today-discharge to short-term rehab. Problem List: 1. CVA (cerebral vascular accident) Pain Ratin Pain Location: none Pain Goal: Remain pain free Pain Plan: tylenol Tomorrow's Labs & Rationales: NONE Suly JORDANFarzanehnorman 01/30/18 1136: Attending MD Review Statement Attending Statement Attending MD Statement: examined this patient, discuss w/resident/PA/STEEPING PRESS OPERATOR, agreed w/resident/PA/STEEPING PRESS OPERATOR, reviewed EMR data (avail) Attending Assessment/Plan: 77M PMH IDDM admitted overnight with recurrent falls, thought to have slurred speech by family, concerning for CVA. Patient feels well at this time and has no complaints. He does not have slurred speech. Cranial nerves intact, no facial droop or asymmetry, normal strength and sensation. Walked well with PT. 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 Internal carotid artery stenosis Plan - Stable for discharge to [facility] - Patient refused ALEKSANDAR - Follow vascular recommendations, no intervention at this time - ASA and statin - Follow neurology recommendations - Speech therapy recommendations following MBS - Continue home medications
--- NOTE | 2018-01-30 11:02 | PN- Cardiology ---
Subjective Subjective: Stable cardiac status. No evidence of any significant arrhythmias. Awaiting discharge to short-term rehab versus home. Objective Vital Signs and I&Os Vital Signs Date Time Temp Pulse Resp B/P B/P Pulse O2 O2 Flow FiO2 Mean Ox Delivery Rate 01/30 1043 82 140/74 01/30 1043 80 140/74 01/30 0821 98.2 01/30 0400 90 142/88 01/30 0200 90 140/80 01/30 0000 Room Air 01/30 0000 92 144/70 01/29 2352 98.5 81 20 140/70 91 Room Air 01/29 2319 98.3 95 18 158/70 91 Room Air 01/29 2200 92 144/70 01/29 2047 92 144/70 01/29 2000 92 144/70 01/29 1834 98.6 100 18 140/76 01/29 1600 Room Air Room Air 01/29 1454 98.2 88 18 138/62 91 01/29 1441 80 Intake & Output 01/30 1600 01/30 0800 01/30 0000 01/29 1600 01/29 0800 01/29 0000 Intake Total 120 30 400 120 450 Output Total 600 200 Balance 120 30 -200 120 250 Intake, Oral 120 30 400 120 450 Output, Urine 600 200 Patient 169 lb 166 lb Weight Physical Exam: Gen: The patient is in no acute distress HEENT: Normal nose, ears, and oropharynx. Pupils equal bilaterally. Conjunctiva normal. Neck: Supple with no JVD, no masses, and no thyromegaly Lungs: Scattered rhonchi with normal respiratory effort Heart: RRR, S1, S2, no murmurs. Abdomen: Soft, nontender, no masses. No hepatomegaly. No splenomegaly Extremities: No clubbing or cyanosis. Normal muscle strength in the upper and lower extremities Skin: Normal Neuro: Cranial nerves intact. Sensation intact Psych: Alert and oriented x 3 with appropriate affect Current Medications: Current Medications Sig/Kamari Start time Last Medication Dose Route Stop Time Status Admin Albuterol Sulfate 2 PUF Q4P PRN 01/28 1045 AC INH Aspirin Buffered 81 MG DAILY 01/27 2025 AC 01/30 PO 1043 Atorvastatin Calcium 40 MG 1700 01/28 1700 AC 01/29 PO 1719 Bisacodyl 10 MG ONCE ONE 01/30 0745 DC 01/30 VT 01/30 0746 1006 Heparin Sodium 5,000 UNIT Q8 01/27 2200 AC 01/30 (Porcine) SC 0628 Insulin Aspart 0 AT BEDTIME 01/28 2100 AC 01/29 SC 2047 Insulin Aspart 0 TIDAC 01/28 1200 AC 01/30 SC 0828 Insulin Detemir 24 UNITS BID 01/29 0900 AC 01/30 SC 1043 Lisinopril 10 MG DAILY 01/28 1530 AC 01/30 PO 1043 Lorazepam 0 Q1P PRN 01/27 2045 AC IV Metoprolol Tartrate 12.5 MG BID 01/28 2100 AC 01/30 PO 1043 Nicotine 21 MG DAILY 01/28 0900 AC 01/30 TOP 1043 Omeprazole 40 MG DAILY AC 01/28 09 AC 01/30 PO 0628 Senna 187 MG AT BEDTIME 01/30 2100 AC PO Thiamine HCl 50 MG DAILY 01/28 913 AC 01/30 PO 1043 Assessment/Plan Assessment/Plan Assessment: 1. Diabetes melena 2. CVA, likely embolic 3. Hypertension 4. Moderate right carotid stenosis Plan: * Continue aspirin * Check with neurology regarding adding Plavix in addition to aspirin * Continue hypertension medication * Echocardiogram noted * ALEKSANDAR was refused by the patient * Continue to monitor on telemetry for atrial fibrillation while in the hospital. If atrial fibrillation is seen, then anticoagulation would be recommended. Will consider possible longer term monitoring as an outpatient for atrial fibrillation. Follow-up with Dr. Martinez as outpatient. Continue telemetry? Yes
--- NOTE | 2018-01-30 13:48 | ECHOCARDIOGRAM REPORT ---
MICAH CESPEDES Age: 77 : 1940 Gender: M Exam Date: 01/29/2018 13:48 Exam Location: 1 [address] Ht (in): 71 Wt (lb): 160 BSA: 1.91 BP: 128 / 64 Ordering Physician: Ivelisse Patterson MD Referring Physician: Klaus Martinez MD Technologist: Lissy Peck ÓSCAR Room Number: [id number] Indications: Stroke Rhythm: Sinus Technical Quality: Technically difficult study FINDINGS Left Ventricle Normal size left ventricle. Normal left ventricular wall thickness. Normal left ventricular ejection fraction visually estimated at > 60%. No obvious regional wall motion abnormalities. Abnormal relaxation filling pattern of the left ventricle for age (stage 1 diastolic dysfunction). Right Ventricle Normal right ventricular size and function. Right Atrium Normal right atrial size. Left Atrium Normal left atrial size. Mitral Valve Mild mitral annular calcification. Mitral valve thickened. Trace mitral regurgitation. Aortic Valve Diffuse thickening (sclerosis) of the aortic valve cusps without reduced excursion. Trace aortic regurgitation. Tricuspid Valve Tricuspid valve not well visualized, grossly normal. Trace tricuspid regurgitation. No evidence of pulmonary hypertension. Pulmonic Valve Pulmonic valve not well visualized, grossly normal. Trace pulmonic regurgitation. Pericardium No pericardial effusion. Great Vessels Normal size aortic root. CONCLUSIONS Normal size left ventricle. Normal left ventricular wall thickness. Normal left ventricular ejection fraction visually estimated at > 60%. Abnormal relaxation filling pattern of the left ventricle for age (stage 1 diastolic dysfunction). Trace mitral regurgitation. Trace aortic regurgitation. Trace tricuspid regurgitation. Trace pulmonic regurgitation. Klaus Martinez M.D. (Electronically Signed) Final Date: 30 January 2018 13:44 MEASUREMENTS (Male / Female) Normal Values 2D ECHO LV Diastolic Diameter PLAX 3.9 cm 4.2 - 5.9 / 3.9 - 5.3 cm LV Systolic Diameter PLAX 2.3 cm 2.1 - 4.0 cm LV Fractional Shortening PLAX 41.0 % 25 - 46 % LV Ejection Fraction 2D Teich 72.5 % IVS Diastolic Thickness 0.7 cm LVPW Diastolic Thickness 1.0 cm LV Relative Wall Thickness 0.4 RV Internal Dim ED PLAX 3.2 cm 1.9 - 3.8 cm LVOT Diameter 2.0 cm Aortic Root Diameter 3.2 cm LA Systolic Diameter LX 3.2 cm 3.0 - 4.0 / 2.7 - 3.8 cm LA Volume 42.0 cm 18 - 58 / 22 - 52 cm Ascending Aorta Diameter 2.8 cm DOPPLER AV Peak Velocity 152.0 cm/s AV Peak Gradient 9.2 mmHg AV Mean Velocity 109.0 cm/s AV Mean Gradient 6.0 mmHg AV Velocity Time Integral 28.0 cm LVOT Peak Velocity 123.0 cm/s LVOT Peak Gradient 6.1 mmHg LVOT Mean Velocity 69.1 cm/s LVOT Mean Gradient 3.0 mmHg LVOT Velocity Time Integral 25.9 cm LVOT Stroke Volume 81.4 cm AV Area Cont Eq vti 2.9 cm AV Area Cont Eq pk 2.5 cm MV Peak Velocity 128.0 cm/s MV Peak Gradient 6.6 mmHg MV Mean Velocity 65.0 cm/s MV Mean Gradient 2.0 mmHg Mitral E Point Velocity 72.1 cm/s Mitral A Point Velocity 116.0 cm/s Mitral E to A Ratio 0.6 MV PHT Velocity 87.5 cm/s MV Deceleration [place] 213.0 cm/s MV Pressure Half Time 123.2 ms MV Area PHT 1.8 cm MV Deceleration Time 330.0 ms TR Peak Velocity 231.0 cm/s TR Peak Gradient 21.3 mmHg Right Atrial Pressure 5.0 mmHg Pulmonary Artery Systolic Pressure 26.3 mmHg Right Ventricular Systolic Pressure 26.3 mmHg PV Peak Velocity 108.0 cm/s PV Peak Gradient 4.7 mmHg PV Mean Velocity 81.7 cm/s PV Mean Gradient 3.0 mmHg PV Velocity Time Integral 22.9 cm LV E' Lateral Velocity 9.0 cm/s Mitral E to LV E' Lateral Ratio 8.0 LV E' Septal Velocity 8.2 cm/s Mitral E to LV E' Septal Ratio 8.8
--- NOTE | 2018-01-30 18:05 | PN- Neurology ---
Subjective Subjective: Ready & willing to go to acute rehab. (+) dysphagia. On thickened liquids. Mild L sided weakness. When walking w/ PT, leans to L. Son, Micah in room PMD is Dr Cool Long time smoker. Using nicotine patch presently. 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 Lives alone in [place] [facility]. 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 Review of Systems: wears hearing aids Objective Vital Signs and I&Os Vital Signs Date Time Temp Pulse Resp B/P B/P Pulse O2 O2 Flow FiO2 Mean Ox Delivery Rate 01/30 1603 98.7 85 22 142/78 01/30 1400 99.0 90 18 140/78 01/30 1400 99.0 90 18 140/78 91 Room Air 01/30 1200 98.3 90 18 140/68 01/30 1043 82 140/74 01/30 1043 80 140/74 01/30 0821 98.2 01/30 0800 Room Air 01/30 0800 98.2 94 18 142/82 01/30 0400 90 142/88 01/30 0200 90 140/80 01/30 0000 Room Air 01/30 0000 92 144/70 01/29 2352 98.5 81 20 140/70 91 Room Air 01/29 2319 98.3 95 18 158/70 91 Room Air 01/29 2200 92 144/70 01/29 2047 92 144/70 01/29 2000 92 144/70 01/29 1834 98.6 100 18 140/76 Intake & Output 01/30 1600 01/30 0800 01/30 0000 01/29 1600 01/29 0800 01/29 0000 Intake Total 1200 120 30 400 120 450 Output Total 450 600 200 Balance 750 120 30 -200 120 250 Intake, Oral 1200 120 30 400 120 450 Output, Urine 450 600 200 Patient 169 lb 166 lb Weight Physical Exam: Awake, alert, oriented Fluent speech Mild dysarthria No facial weakness Mild L hemiparesis & hemiataxia Current Medications: Current Medications Sig/Kamari Start time Last Medication Dose Route Stop Time Status Admin Albuterol Sulfate 2 PUF Q4P PRN 01/28 1045 AC INH Aspirin Buffered 81 MG DAILY 01/27 2025 AC 01/30 PO 1043 Atorvastatin Calcium 40 MG 1700 01/28 1700 AC 01/30 PO 1654 Bisacodyl 10 MG ONCE ONE 01/30 0745 DC 01/30 IL 01/30 0746 1006 Heparin Sodium 5,000 UNIT Q8 01/27 2200 AC 01/30 (Porcine) SC 1420 Insulin Aspart 0 AT BEDTIME 01/28 2100 AC 01/29 SC 2047 Insulin Aspart 0 TIDAC 01/28 1200 AC 01/30 SC 1655 Insulin Detemir 24 UNITS BID 01/29 0900 AC 01/30 SC 1043 Lisinopril 10 MG DAILY 01/28 1530 AC 01/30 PO 1043 Lorazepam 0 Q1P PRN 01/27 2045 AC IV Metoprolol Tartrate 12.5 MG BID 01/28 2100 AC 01/30 PO 1043 Nicotine 21 MG DAILY 01/28 09 AC 01/30 TOP 1043 Omeprazole 40 MG DAILY AC 01/28 913 AC 01/30 PO 0628 Senna 187 MG AT BEDTIME 01/30 2100 AC PO Thiamine HCl 50 MG DAILY 01/28 913 AC 01/30 PO 1043 Results Last 24 Hours of Lab Results: Laboratory Tests 01/30 618 Chemistry Sodium (137 - 145 mmol/L) 139 Potassium (3.5 - 5.1 mmol/L) 3.5 Chloride (98 - 107 mmol/L) 101 Carbon Dioxide (22 - 30 mmol/L) 29 Anion Gap (5 - 16) 9 BUN (9 - 20 mg/dL) 18 Creatinine (0.7 - 1.2 mg/dL) 0.5 L Estimated GFR (>60 ml/min) > 60 BUN/Creatinine Ratio (7 - 25 %) 36.0 H Recent Imaging Studies: PATIENT: MICAH CESPEDES PRESENT AGE: 77 PATIENT ACCOUNT NO: [id number] : 39 LOCATION: [facility] ORDERING PHYSICIAN: Ivelisse Patterson MD SERVICE DATE: 01/28/18- EXAM TYPE: CAT - CT HEAD ANGIOGRAM; CT NECK ANGIOGRAM EXAMINATION: CT ANGIOGRAM NECK WITH CONTRAST CT ANGIOGRAM BRAIN WITH CONTRAST CLINICAL INFORMATION: Stroke. Slurred speech. COMPARISON: MRI of the brain and MRA of the neck from the same day. TECHNIQUE: Test bolus sequences followed by intravenous administration 95 mL of Optiray 320. Helical imaging was performed in the axial plane from the thoracic inlet to the skull vertex. Delayed postcontrast imaging of the head was also performed. The data was processed at the nanotechnology engineering technologist workstation for generation of MIP sequences. Angled MIPs and volume rendered reformatted images were also generated at an offline 3D workstation. Stenoses are assessed in accordance with NASCET criteria unless otherwise indicated. DLP: 2577 mGy-cm FINDINGS: Nonvascular: There is breathing artifact in the lung apices along with some paraseptal emphysematous changes most notable in the right upper lobe. No upper mediastinal adenopathy. No discrete thyroid lesions. The visualized pharyngeal and laryngeal contours as well as the imaged oral cavity appear grossly unremarkable. No cervical adenopathy. The parotid and submandibular glands are symmetric in attenuation without evidence of sialadenitis. The orbits are notable for bilateral ocular lens extractions. Intracranially there is no evidence of hemorrhage. There is moderate generalized prominence of the ventricles, sulci, and extra-axial CSF spaces. There is no mass effect, hydrocephalus, or shift of the normally midline structures. No abnormal intracranial enhancement. The punctate focus of restricted diffusion in the high right centrum semiovale seen on the prior MRI is difficult to visualize by CT. The right parasagittal medullary infarct is also difficult to visualize by CT due to streak artifact. No evidence of progressive territorial infarct. No acute osseous abnormalities. The paranasal sinuses, nasal cavity, middle ear cavities, and mastoid air cells are clear apart from trace fluid in the mastoid tips bilaterally. The temporomandibular joints articulate normally. There is multilevel cervical spondylosis without evidence of high-grade bony canal stenosis. Prominent anterior bridging osteophytes are visualized at C4-C5 and C5-C6. There is periodontal and periapical lucency involving the remaining right mandibular molar with surrounding sclerosis compatible with condensing osteitis. Vascular: The aortic arch demonstrates mild calcified and noncalcified atheroma but is normal in caliber. There is calcification at the origin of the left common carotid artery and left subclavian artery without convincing evidence of hemodynamically significant stenosis, accounting for some streak artifact related to dense venous contrast at the thoracic inlet. The origin of the right common carotid artery appears unremarkable. The origin of the right vertebral artery and left vertebral artery appear unremarkable coming for mild atherosclerotic calcification. The proximal subclavian arteries appear grossly maintained. The common carotid arteries appear normal in caliber with mild atherosclerotic calcification distally. There is some calcified and noncalcified atheroma at the carotid bulb extending into the proximal left internal carotid artery without hemodynamically significant stenosis. Otherwise the cervical left internal carotid artery appears normal in caliber. There is mild atherosclerotic calcification involving the right carotid bulb and proximal right internal carotid artery. The proximal right internal carotid artery runs a somewhat medialized course with a mild impression on the posterior pharyngeal wall. There is some tortuosity of the right cervical internal carotid artery. No right cervical internal carotid artery hemodynamically significant stenosis. The right vertebral artery appears normal in caliber throughout its cervical course, apart from moderate extrinsic compression at the C3-C4 level due to advanced right facet arthropathy, correlating with the MRA finding. The left vertebral artery appears unremarkable throughout its cervical course. The distal right internal carotid artery is notable for a focal high-grade stenosis involving its supraclinoid segment after the ophthalmic origin with reconstitution of the carotid terminus. The left distal internal carotid artery similarly demonstrates a focal high-grade stenosis of its supraclinoid segment with reconstitution at the carotid terminus. Both internal carotid arteries are calcified in their cavernous segments. The anterior cerebral arteries and the middle cerebral arteries as well as the anterior communicating arteries appear fairly normal in caliber and configuration without evidence of high-grade stenosis or focal occlusion. No evidence of anterior circulation aneurysm. Neither posterior communicating arteries are well visualized, a normal variant. The distal vertebral arteries, basilar artery and vertebrobasilar branches appear normal in caliber and configuration without evidence of focal high-grade stenosis, occlusion, or aneurysm. The major dural venous sinuses, deep and cortical veins opacify normally. IMPRESSION: 1. The known acute lacunar infarct in the right centrum semiovale and right parasagittal medulla seen by MRI are difficult to visualize by CT. No progressive infarcts are evident. No abnormal intracranial enhancement. 2. There are focal high-grade stenoses involving the supraclinoid internal carotid arteries bilaterally. There is a focal moderate stenosis involving the right cervical vertebral artery at the C3-C4 level due to advanced right-sided facet arthropathy, correlating with the MRA finding. DICTATED BY: Johan Lowery MD DATE/TIME DICTATED:01/29/18814 MANAGER EQUITY:DANIELLE DATE/TIME TRANSCRIBED:01/29/18814 CONFIDENTIAL, DO NOT COPY WITHOUT APPROPRIATE AUTHORIZATION. <Electronically signed in Other Vendor System> SIGNED BY: Johan Lowery MD 01/29/18 0841 PATIENT: MICAH CESPEDES PRESENT AGE: 77 PATIENT ACCOUNT NO: [id number] : 39 LOCATION: [facility] ORDERING PHYSICIAN: Ivelisse Patterson MD SERVICE DATE: 01/28/18- EXAM TYPE: MRI - MRA-NECK W/O>W KIMMIE; MRI-HEAD W/O KIMMIE EXAMINATION: MR BRAIN WITHOUT CONTRAST MRA NECK WITH AND WITHOUT CONTRAST CLINICAL INFORMATION: Question TIA/stroke. COMPARISON: Head CT 01/27/2018. TECHNIQUE: MRI of the brain without contrast was obtained using routine sequences. In addition, [id number] MR angiography was performed through the neck without the use of intravenous contrast, and source images were reviewed along with rotating MIPs. Finally, bolus IV and postcontrast MR angiography was performed through the cervicocerebral vasculature following the administration of 8 mL of Gadavist. Source images were reviewed and additional volumetric and angled MIPs were independently generated and archived by the 3D laboratory. Stenoses are assessed in accordance with NASCET criteria unless otherwise indicated. FINDINGS: BRAIN MRI: There is an acute infarct within the right paramedian medulla on image 50 of series 3 and there is a small acute lacunar infarct within the right parasagittal frontal lobe on image 63 and 64 of series 3. 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 There is global cerebral volume loss. There is no hydrocephalus, extra-axial surface collection, or herniation. The major flow voids at the skull base are preserved. There is no intracranial hemorrhage on the gradient recalled echo acquisition. The midline structures are normal. The cerebellar tonsils are normally positioned. The craniocervical junction is normal. Osseous marrow signal intensity is homogenous. The visualized soft tissues are unremarkable. Small mastoid effusions bilaterally. NECK MRA: There is a 3 great vessel branch configuration off of the aortic arch and the great vessel origins are widely patent. The vertebral arteries are codominant and there is a moderate stenosis involving the mid right vertebral artery. Vertebral arteries are otherwise widely patent. Imaged vertebrobasilar system is widely patent. The common carotid arteries, the carotid bifurcations, and the cervical internal carotid arteries are widely patent. IMPRESSION: - There is an acute infarct within the right paramedian medulla on image 50 of series 3 and there is a small acute lacunar infarct within the right parasagittal frontal lobe on image 63 and 64 of series 3. - Global cerebral volume loss and mild chronic microangiopathy. 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 The cervical arterial vasculature is otherwise widely patent. The covering provider has been paged with these findings at 1:30 PM on 01/28/2018. DICTATED BY: Waldemar Mascorro MD DATE/TIME DICTATED:01/28/181318 MANAGER EQUITY:DANIELLE DATE/TIME TRANSCRIBED:01/28/181318 CONFIDENTIAL, DO NOT COPY WITHOUT APPROPRIATE AUTHORIZATION. <Electronically signed in Other Vendor System> SIGNED BY: Waldemar Mascorro MD 01/28/18 1691 Echo: FINDINGS Left Ventricle Normal size left ventricle. Normal left ventricular wall thickness. Normal left ventricular ejection fraction visually estimated at > 60%. No obvious regional wall motion abnormalities. Abnormal relaxation filling pattern of the left ventricle for age (stage 1 diastolic dysfunction). 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
[2018-01-31 06:37] VITALS: BP 172/65
--- NOTE | 2018-01-31 07:27 | PN- Housestaff ---
Leonardo JORDAN,Ivelisse 01/31/18 0727: Subjective Follow-up For: STROKE Complaints: no complaints Subjective: Patient seen and examined at bedside no overnight events. Patient denies dizziness/numbness/weakness. Though patient doesn't like to go to rehabilitation he understands that going to rehabilitation as important. Review of Systems Constitutional: Reports: no symptoms. Objective Last 24 Hrs of Vital Signs/I&O Vital Signs Date Time Temp Pulse Resp B/P B/P Pulse O2 O2 Flow FiO2 Mean Ox Delivery Rate 01/31 1505 98.3 100 18 154/76 91 Room Air 01/31 1356 81 01/31 1255 93 Room Air 01/31 1200 84 01/31 1000 81 01/31 0807 92 138/60 01/31 0807 92 138/60 01/31 0800 98.3 91 138/60 01/31 0800 90 Room Air 01/31 0637 20 172/65 01/30 2311 98.3 88 18 152/80 90 Room Air 01/30 2044 Room Air 01/30 1800 98.4 91 20 140/70 01/30 1603 98.7 85 22 142/78 Intake & Output 01/31 1600 01/31 0800 01/31 0000 Intake Total 760 120 120 Output Total 175 Balance 760 -55 120 Intake, Oral 760 120 120 Output, Urine 175 Patient 162 lb Weight Weight Bed scale Measurement Method Physical Exam General Appearance: Alert, Oriented X3, Cooperative, No Acute Distress Cardiovascular: Regular Rate, Normal S1, Normal S2, No Murmurs Lungs: Normal Air Movement Abdomen: Soft, No Tenderness, No Hepatospenomegaly Neurological: Normal Speech, Strength at 5/5 X4 Ext, Normal Tone, Sensation Intact Extremities: No Cyanosis, No Edema, Normal Pulses Current Medications: Current Medications Sig/Kamari Start time Last Medication Dose Route Stop Time Status Admin Albuterol Sulfate 2 PUF Q4P PRN 01/28 1045 AC INH Aspirin Buffered 81 MG DAILY 01/27 202 AC 01/31 PO 0807 Atorvastatin Calcium 40 MG 1700 01/28 1700 AC 01/30 PO 1654 Heparin Sodium 5,000 UNIT Q8 01/27 2200 AC 01/31 (Porcine) SC 0530 Insulin Aspart 0 AT BEDTIME 01/28 2100 AC 01/29 SC 2047 Insulin Aspart 0 TIDAC 01/28 1200 AC 01/31 SC 1300 Insulin Detemir 24 UNITS BID 01/29 0900 AC 01/31 SC 0808 Lisinopril 10 MG DAILY 01/28 1530 AC 01/31 PO 0807 Lorazepam 0 Q1P PRN 01/27 2045 AC IV Metoprolol Tartrate 12.5 MG BID 01/28 2100 AC 01/31 PO 0807 Nicotine 21 MG DAILY 01/28 09 AC 01/31 TOP 0807 Omeprazole 40 MG DAILY AC 01/28 913 AC 01/31 PO 0530 Senna 187 MG AT BEDTIME 01/30 2100 AC PO Thiamine HCl 50 MG DAILY 01/28 913 AC 01/31 PO 0808 Assessment/Plan Assessment: 77-year-old male who is active smoker, with past medical history significant for diabetes mellitus on insulin, and nephrolithiasis who has presented to ED due to slurred speech and fall. Assessment and plan 1. 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 Multiple fall assist gait mobility 4. Chronic alcohol use 5. Chronic smoking-active smoker * Continue telemetry monitoring * Vitals every shift * Patient had an echocardiogram done. We will follow with the results. * Neurology follow-up appreciated * Patient is working with physical therapy.Physical therapy suggested short-term rehab. Patient family updated. * Patient counseled to quit smoking and alcohol. * Continue nicotine patches * Patient is already on CIWA protocol. Score 0 * Leukocytosis-unclear at this point. Resolving. Patient had a choking episode today and we did a repeat chest x-ray which showed left lower lobe infiltrate which can be chemical pneumonitis. Given no temperature patient will not be started on antibiotics. * Patient had a CT of the neck which showed bilateral carotid artery stenosis [ focal high-grade stenoses involving the supraclinoid internal carotid arteries bilaterally]. Vascular surgery consulted who said medical management. Plan today-discharge to short-term rehab. Problem List: 1. CVA (cerebral vascular accident) Pain Ratin Pain Location: NONE Pain Goal: Pain 7 or less Pain Plan: TYLENOL Tomorrow's Labs & Rationales: CBC,BEP Suly JORDAN,Narciso 01/31/18 1450: Attending MD Review Statement Attending Statement Attending MD Statement: examined this patient, discuss w/resident/PA/[employer], agreed w/resident/PA/[employer], reviewed EMR data (avail) Attending Assessment/Plan: 77M PMH IDDM admitted overnight with recurrent falls, thought to have slurred speech by family, concerning for CVA. Patient feels well at this time and has no complaints. He does not have slurred speech. Cranial nerves intact, no facial droop or asymmetry, normal strength and sensation. Walked well with PT. 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 Internal carotid artery stenosis Plan - Stable for discharge to [facility] - Patient refused ALEKSANDAR - Follow vascular recommendations, no intervention at this time - ASA and statin - Follow neurology recommendations - Speech therapy recommendations [place] [facility] [place] - Continue home medications
[2018-01-31 08:00] VITALS: BP 138/60
--- NOTE | 2018-01-31 14:02 | PN- Cardiology ---
Subjective Subjective: Stable with no new cardiac symptoms. No significant arrhythmias detected. Objective Vital Signs and I&Os Vital Signs Date Time Temp Pulse Resp B/P B/P Pulse O2 O2 Flow FiO2 Mean Ox Delivery Rate 01/31 1356 81 01/31 1255 93 Room Air 01/31 1200 84 01/31 1000 81 01/31 0807 92 138/60 01/31 0807 92 138/60 01/31 0800 98.3 91 138/60 01/31 0800 90 Room Air 01/31 0637 20 172/65 01/30 2311 98.3 88 18 152/80 90 Room Air 01/30 2044 Room Air 01/30 1800 98.4 91 20 140/70 01/30 1603 98.7 85 22 142/78 Intake & Output 01/31 1600 01/31 0800 01/31 0000 01/30 1600 01/30 0800 01/30 0000 Intake Total 760 522 368 6161 120 30 Output Total 175 450 Balance 760 -55 120 750 120 30 Intake, Oral 760 264 718 2852 120 30 Output, Urine 175 450 Patient 162 lb 169 lb Weight Weight Bed scale Measurement Method Current Medications: Current Medications Sig/Kamari Start time Last Medication Dose Route Stop Time Status Admin Albuterol Sulfate 2 PUF Q4P PRN 01/28 1045 AC INH Aspirin Buffered 81 MG DAILY 01/27 202 AC 01/31 PO 0807 Atorvastatin Calcium 40 MG 1700 01/28 1700 AC 01/30 PO 1654 Heparin Sodium 5,000 UNIT Q8 01/27 2200 AC 01/31 (Porcine) SC 0530 Insulin Aspart 0 AT BEDTIME 01/28 2100 AC 01/29 IA 2047 Insulin Aspart 0 TIDAC 01/28 1200 AC 01/31 SC 1300 Insulin Detemir 24 UNITS BID 01/29 0900 AC 01/31 SC 0808 Lisinopril 10 MG DAILY 01/28 1530 AC 01/31 PO 0807 Lorazepam 0 Q1P PRN 01/27 2045 AC IV Metoprolol Tartrate 12.5 MG BID 01/28 2100 AC 01/31 PO 0807 Nicotine 21 MG DAILY 01/28 0900 AC 01/31 TOP 0807 Omeprazole 40 MG DAILY AC 01/28 0913 AC 01/31 PO 0530 Senna 187 MG AT BEDTIME 01/30 2100 AC PO Thiamine HCl 50 MG DAILY 01/28 09 AC 01/31 PO 0808 Results Last 48 Hrs of Labs/Mics: Laboratory Tests 01/30/18 0618: Anion Gap 9, Estimated GFR > 60, BUN/Creatinine Ratio 36.0 H Assessment/Plan Assessment/Plan Assessment: 1. Diabetes melena 2. CVA, likely embolic 3. Hypertension 4. Moderate right carotid stenosis Plan: * Continue aspirin * Check with neurology regarding adding Plavix in addition to aspirin * Continue hypertension medication * Echocardiogram noted * ALEKSANDAR was refused by the patient * Continue to monitor on telemetry for atrial fibrillation while in the hospital. If atrial fibrillation is seen, then anticoagulation would be recommended. Will consider possible longer term monitoring as an outpatient for atrial fibrillation. Follow-up with Dr. Martinez as outpatient. Continue telemetry? Yes
[2018-01-31 15:05] VITALS: BP 154/76
--- NOTE | 2018-01-31 15:11 | RADIOLOGY REPORT ---
EXAMINATION: XR CHEST CLINICAL INFORMATION: Aspiration pneumonia. Cough. COMPARISON: Chest x-ray 01/27/2018. CT lumbar spine 06/23/2016. CT abdomen pelvis 07/09/2013. TECHNIQUE: 2 views of the chest were obtained. FINDINGS: There is focal dense consolidation at the posterior left lung base. The right lung is clear. There is hyperinflation of lungs. There is no pulmonary vascular congestion. The heart size is normal. The cardiac and the mediastinal contours are normal. There is degenerative spondylosis of dorsal spine with multilevel disc height narrowing and endplate spurring. There is anterior wedge compression deformity of a lower thoracic vertebrae, probably T11, with about 50% loss of height of the vertebrae. This is likely an old compression deformity. IMPRESSION: There is a infiltrate in the posterior left lower lobe.
[2018-01-31 16:36] VITALS: BP 154/76
== END 2018-01-31 19:30 | DRG 64 ==
LOC: ERH 15:15 → 1NO 19:23 → ERHI 19:23 → ENRESERV 20:06 → 1NO 21:10
PROVIDERS: Emergency Medicine; Internal Medicine Adolescent Medicine; Student in an Organized Health Care Education/Training Program
DX: I63.8 Other cerebral infarction (principal); I63.19 Cerebral infarction due to embolism of other precerebral artery; M62.82 Rhabdomyolysis; G46.4 Cerebellar stroke syndrome; R13.10 Dysphagia, unspecified; Z91.81 History of falling; M54.9 Dorsalgia, unspecified; R47.81 Slurred speech; F10.10 Alcohol abuse, uncomplicated; Y90.0 Blood alcohol level of less than 20 mg/100 ml; I10 Essential (primary) hypertension; E11.65 Type 2 diabetes mellitus with hyperglycemia; Z79.4 Long term (current) use of insulin; M47.9 Spondylosis, unspecified; R47.1 Dysarthria and anarthria; I48.91 Unspecified atrial fibrillation; I65.23 Occlusion and stenosis of bilateral carotid arteries; W18.30XA Fall on same level, unspecified, initial encounter; Y92.000 Kitchen of unspecified non-institutional (private) residence as the place of occurrence of the external cause; F17.210 Nicotine dependence, cigarettes, uncomplicated; Z66 Do not resuscitate
CPT/HCPCS: 1NP; 70551; 70564; 36592; 71045; 71046; 74230; 80307; 81001; 82436; 82570; 87086; 93005; 93010; 93306; 96372; 97110-GO; 97112-GO; 97116-GO; 97161-GP; 97530-GO; A9579; G0480; J1644; J1815; J3490; J7060